=== PATIENT | male | born 1940 | race Caucasian/White ===

== ENCOUNTER 2018-09-19 10:54 | Inpatient (IN) ==
[2018-09-19] MEDS ORDERED: DUONEB (A & A) INH ONE (11:00)
[2018-09-19] MEDS ORDERED: PULMICORT INH ONE (11:00)
[2018-09-19] MEDS ORDERED: ALBUTEROL 0.5% INH CONC FOR HYPERKALEMIA ONE (11:02)
[2018-09-19] MEDS ORDERED: DECADRON IV ONE (11:02)
[2018-09-19] MEDS ORDERED: DUONEB (A & A) ONE (11:03)
[2018-09-19 11:27] LABS: ALLEN TEST YES; BE -2.1 mmoll (-3.0-3.0); BLOOD TYPE ARTERIAL; HCO3-(ACT) 23.3 mmoll (20.0-26.0); METHB 0.9 % (0.0-1.5); O2(CT) 13.8 mL/dL (15.0-23.0); O2HB 95.9 % (95.0-99.0); PCO2(98.6) 36 mmHg (35-45); PO2(98.6) 99 mmHg (60-100); SAMPLE BLOOD; SAO2 99.2 % (95.0-100.0); THB 10.1 g/dL (11.5-17.4)
[2018-09-19 11:28] LABS: MODALITY CANNULA
[2018-09-19 11:28] LABS: EOS% 1.2 % (0.0-10.0); HEMATOCRIT 31.3 % (42.0-52.0); HEMOGLOBIN 9.7 g/dL (14.0-18.0); IMM GRAN# 0.03 X1000 (0.0-0.04); IMM GRAN% 0.4 % (0.0-0.5); LYMPH# 1.47 X1000 (1.2-3.4); MCH 30.4 PG (27-31); MCV 98.1 FL (81-99); MONO# 1.37 X1000 (0.11-0.59); MONO% 16.8 % (1.7-9.3); MPV 10.2 FL (7.4-10.4); NEUT# 5.18 X1000 (1.4-6.5); NEUT% 63.6 % (42.2-75.2); PLT 189 X1000 (130-400); RBC 3.19 XMIL (4.7-6.1); RDW 15.1 % (11.5-14.5); WBC 8.15 X1000 (4.8-10.8)
--- NOTE | 2018-09-19 11:34 | Diag Imaging Result Doc PS360 ---
EXAM: CHEST-PORTABLE 09/19/2018 HISTORY: cough TECHNIQUE: AP portable at 1125 COMMENT: There is ill-defined opacity over both lung bases. This is worse than on 09/05/2018. IMPRESSION: Bibasilar atelectasis and/or pneumonia. Electronically signed by Darwin Guadalupe 09/19/2018 11:32 AM
[2018-09-19 12:09] LABS: ALB/GLOB RATIO 1.2; ALBUMIN 3.6 g/dL (3.5-5.0); CREATININE 1.5 mg/dL (0.7-1.2); POTASSIUM 4.6 mmol/L (3.5-5.1); TOTAL BILIRUBIN 0.26 mg/dL (0.20-1.00); TOTAL PROTEIN 6.6 g/dL (6.3-8.3)
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
--- NOTE | 2018-09-19 15:07 | EKG Report ---
Test Performed on : 09/19/2018 10:58:10 AM Test Reason : ED. No order in [place] Blood Pressure : / mmHG Vent. Rate : 086 BPM Atrial Rate : 091 BPM P-R Int : 216 ms QRS Dur : 118 ms QT Int : 374 ms P-R-T Axes : 109 -23 078 degrees QTc Int : 447 ms Undetermined rhythm Left ventricular hypertrophy with QRS widening and repolarization abnormality Abnormal ECG When compared with ECG of 19-SEP-2018 10:57, (Unconfirmed) Current undetermined rhythm precludes rhythm comparison, needs review ST no longer depressed in Anterior leads Inverted T waves have replaced nonspecific T wave abnormality in Inferior leads T wave inversion no longer evident in Anterior leads QT has shortened Unconfirmed Result
[2018-09-19] MEDS ORDERED: DUONEB (A & A) INH PRN (15:09)
[2018-09-19] MEDS ORDERED: ZOFRAN IV PRN (15:09)
[2018-09-19] MEDS: NS 1,000 ML IV SCH (15:57)
[2018-09-19] MEDS: ROCEPHIN 1 GM in NS 50 ML IV SCH (15:57)
[2018-09-19] MEDS: DUONEB (A & A) INH SCH ×3 (16:00→23:54)
[2018-09-19] MEDS: HUMALOG SUBQ SCH (18:20)
[2018-09-19] MEDS: TESSALON PO SCH (18:49)
[2018-09-19] MEDS: SOLU-MEDROL IV SCH (18:49)
[2018-09-19] MEDS: PULMICORT INH SCH (19:23)
[2018-09-19] MEDS: ZITHROMAX 500 MG/NS 500 MG/250 ML IVPB IV SCH (20:01)
[2018-09-19] MEDS: RANEXA PO SCH (20:22)
[2018-09-19] MEDS: COREG PO SCH (20:22)
[2018-09-19] MEDS: CARDIZEM CD PO SCH (20:23)
[2018-09-19] MEDS: LIPITOR PO SCH (20:23)
[2018-09-19] MEDS: ELAVIL PO SCH (20:23)
[2018-09-19] MEDS: ZANTAC PO SCH (20:23)
[2018-09-19] MEDS ORDERED: CARDIZEM IV ONE ×2 (20:35→20:53)
[2018-09-19] MEDS ORDERED: LANOXIN IV ONE (20:36)
[2018-09-20] MEDS: HUMALOG SUBQ SCH ×5 (00:24→20:38)
[2018-09-20] MEDS: SOLU-MEDROL IV SCH ×3 (01:55→18:14)
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
[2018-09-20] MEDS: DUONEB (A & A) INH SCH ×6 (03:47→23:00)
[2018-09-20 06:15] LABS: HEMATOCRIT 32.9 % (42.0-52.0); HEMOGLOBIN 10.2 g/dL (14.0-18.0); IMM GRAN# 0.04 X1000 (0.0-0.04); IMM GRAN% 0.8 % (0.0-0.5); LYMPH# 0.71 X1000 (1.2-3.4); LYMPH% 14.8 % (20.5-51.1); MCH 30.2 PG (27-31); MCV 97.3 FL (81-99); MONO# 0.04 X1000 (0.11-0.59); MONO% 0.8 % (1.7-9.3); MPV 10.3 FL (7.4-10.4); NEUT% 83.6 % (42.2-75.2); PLT 194 X1000 (130-400); RBC 3.38 XMIL (4.7-6.1); RDW 14.9 % (11.5-14.5); WBC 4.79 X1000 (4.8-10.8)
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
[2018-09-20 06:35] LABS: AGAP 13; BUN 23 mg/dL (8-22); CALCIUM 8.9 mg/dL (8.8-10.2); CHLORIDE 108 mmol/L (98-107); COSMO 294; CREATININE 1.1 mg/dL (0.7-1.2); ESTIMATED GFR > 60; GLUCOSE 203 mg/dL (70-104); POTASSIUM 5.1 mmol/L (3.5-5.1); SODIUM 143 mmol/L (136-145); TCO2 22 mmol/L (25-35)
[2018-09-20] MEDS: PULMICORT INH SCH (07:30)
--- NOTE | 2018-09-20 07:32 | EKG Report ---
Test Performed on : 09/19/2018 8:30:50 PM Test Reason : afib on tele Blood Pressure : / mmHG Vent. Rate : 141 BPM Atrial Rate : 141 BPM P-R Int : 000 ms QRS Dur : 126 ms QT Int : 340 ms P-R-T Axes : 000 -17 107 degrees QTc Int : 520 ms Wide QRS tachycardia. Nonspecific intraventricular block T wave abnormality, consider lateral ischemia Abnormal ECG When compared with ECG of 19-SEP-2018 10:58, (Unconfirmed) Previous ECG has undetermined rhythm, needs review Unconfirmed Result
[2018-09-20] MEDS: COREG PO SCH ×2 (10:00→20:37)
[2018-09-20] MEDS: RANEXA PO SCH ×2 (10:02→20:38)
[2018-09-20] MEDS: ZANTAC PO SCH ×2 (10:02→20:38)
[2018-09-20] MEDS: ALDACTONE PO SCH (10:03)
[2018-09-20] MEDS: VICON-C PO SCH (10:03)
[2018-09-20] MEDS: TESSALON PO SCH ×3 (10:03→18:14)
[2018-09-20] MEDS: IMDUR PO SCH (10:03)
[2018-09-20] MEDS: ASPIRIN PO SCH (10:03)
[2018-09-20 11:31] LABS: HEMOGLOBIN A1C 6.2 % (4.8-6.0)
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
[2018-09-20] MEDS: LASIX IV SCH (14:44)
[2018-09-20] MEDS: CARAFATE PO SCH ×3 (14:48→20:38)
[2018-09-20] MEDS: NS 1,000 ML IV SCH (16:42)
[2018-09-20] MEDS: ROCEPHIN 1 GM in NS 50 ML IV SCH (16:43)
[2018-09-20] MEDS: ZITHROMAX 500 MG/NS 500 MG/250 ML IVPB IV SCH (18:13)
[2018-09-20] MEDS: ELAVIL PO SCH (20:38)
[2018-09-20] MEDS: CARDIZEM CD PO SCH (20:38)
[2018-09-20] MEDS: LIPITOR PO SCH (20:38)
--- NOTE | 2018-09-20 21:22 | ECHO REPORT ---
ORDER DATE: 09/19/2018 MEASUREMENTS: Left ventricular internal diameter diastole 6.3, septal thickness 1.1, left atrium 4.5, aortic root 3.6. Summary 1. Technically difficult study due to limited acoustic window quality. 2. Aortic valve is trileaflet and demonstrates mild sclerotic changes with adequate opening on 2- dimensional images. Peak gradient across aortic valve is less than 10 mmHg. Mild mitral annular calcification is demonstrated along with mild thickening of mitral valve leaflets. There is mild mitral regurgitation. Tricuspid and pulmonic valves are without evidence of structural abnormality with trace tricuspid regurgitation. Aortic root is normal in size. 3. Mild left ventricular enlargement with upper normal wall thickness demonstrated. Estimated left ejection fraction approximately 20% in the setting of global hypokinesis. Left atrium is mildly enlarged. Right atrium, right ventricle normal in size with grossly preserved right ventricular systolic function. 4. No pericardial effusion. 5. Appearance of inferior vena cava suggests elevated central venous pressure. cc: Jean-Claude Mandel MD
[2018-09-21] MEDS: SOLU-MEDROL IV SCH ×4 (02:24→18:25)
[2018-09-21] MEDS: DUONEB (A & A) INH SCH ×6 (03:20→23:17)
[2018-09-21] MEDS: HUMALOG SUBQ SCH ×4 (06:09→21:35)
[2018-09-21 06:30] LABS: HEMATOCRIT 32.2 % (42.0-52.0); HEMOGLOBIN 9.9 g/dL (14.0-18.0); LYMPH# 0.61 X1000 (1.2-3.4); LYMPH% 6.2 % (20.5-51.1); MCH 30.4 PG (27-31); MCHC 30.7 g/dL (33-37); MCV 98.8 FL (81-99); MONO% 3.1 % (1.7-9.3); MPV 10.5 FL (7.4-10.4); NEUT# 8.92 X1000 (1.4-6.5); NEUT% 90.7 % (42.2-75.2); PLT 198 X1000 (130-400); RBC 3.26 XMIL (4.7-6.1); RDW 15.3 % (11.5-14.5); WBC 9.83 X1000 (4.8-10.8)
[2018-09-21 06:56] LABS: CALCIUM 8.8 mg/dL (8.8-10.2); CREATININE 1.4 mg/dL (0.7-1.2); POTASSIUM 4.7 mmol/L (3.5-5.1)
[2018-09-21 08:01] LABS: BANDS 2 % (0-1); LYMPHS 6 % (21-51); SEGS 92 % (42-75)
[2018-09-21] MEDS: ZANTAC PO SCH ×2 (08:49→21:34)
[2018-09-21] MEDS: TESSALON PO SCH ×3 (08:50→18:25)
[2018-09-21] MEDS: FERROUS SULFATE PO SCH (08:50)
[2018-09-21] MEDS: ALDACTONE PO SCH (08:50)
[2018-09-21] MEDS: ZYRTEC PO SCH (08:50)
[2018-09-21] MEDS: CARAFATE PO SCH ×4 (08:50→21:35)
[2018-09-21] MEDS: VICON-C PO SCH (08:50)
[2018-09-21] MEDS: RANEXA PO SCH ×2 (08:50→21:35)
[2018-09-21] MEDS: COREG PO SCH ×2 (08:50→21:35)
[2018-09-21] MEDS: LASIX IV SCH ×2 (08:50→21:35)
[2018-09-21] MEDS: ASPIRIN PO SCH (08:50)
[2018-09-21] MEDS: IMDUR PO SCH (08:50)
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
[2018-09-21] MEDS: ROCEPHIN 1 GM in NS 50 ML IV SCH (16:36)
[2018-09-21] MEDS: ZITHROMAX 500 MG/NS 500 MG/250 ML IVPB IV SCH (18:25)
[2018-09-21] MEDS: LIPITOR PO SCH (21:34)
[2018-09-21] MEDS: ELAVIL PO SCH (21:35)
[2018-09-21] MEDS: CARDIZEM CD PO SCH (21:35)
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
[2018-09-22] MEDS: SOLU-MEDROL IV SCH ×4 (01:49→18:03)
[2018-09-22] MEDS: DUONEB (A & A) INH SCH ×6 (03:14→22:40)
[2018-09-22 06:15] LABS: HEMATOCRIT 30.3 % (42.0-52.0); HEMOGLOBIN 9.3 g/dL (14.0-18.0); IMM GRAN# 0.05 X1000 (0.0-0.04); IMM GRAN% 0.4 % (0.0-0.5); LYMPH# 0.57 X1000 (1.2-3.4); LYMPH% 4.9 % (20.5-51.1); MCHC 30.7 g/dL (33-37); MCV 97.7 FL (81-99); MONO# 0.58 X1000 (0.11-0.59); MPV 10.4 FL (7.4-10.4); NEUT# 10.33 X1000 (1.4-6.5); NEUT% 89.7 % (42.2-75.2); PLT 195 X1000 (130-400); RDW 15.1 % (11.5-14.5); WBC 11.53 X1000 (4.8-10.8)
[2018-09-22 06:22] LABS: CALCIUM 8.5 mg/dL (8.8-10.2); CREATININE 1.5 mg/dL (0.7-1.2); POTASSIUM 4.4 mmol/L (3.5-5.1)
[2018-09-22] MEDS: HUMALOG SUBQ SCH ×6 (06:44→22:40)
[2018-09-22] MEDS: VICON-C PO SCH (08:22)
[2018-09-22] MEDS: TESSALON PO SCH ×3 (08:22→18:03)
[2018-09-22] MEDS: COREG PO SCH ×2 (08:22→22:38)
[2018-09-22] MEDS: ZANTAC PO SCH ×2 (08:22→22:39)
[2018-09-22] MEDS: ALDACTONE PO SCH (08:22)
[2018-09-22] MEDS: RANEXA PO SCH ×2 (08:23→22:39)
[2018-09-22] MEDS: CARAFATE PO SCH ×4 (08:23→22:38)
[2018-09-22] MEDS: IMDUR PO SCH (08:23)
[2018-09-22] MEDS: LASIX IV SCH (08:23)
[2018-09-22] MEDS: ASPIRIN PO SCH (08:23)
[2018-09-22] MEDS: ZYRTEC PO SCH (08:23)
[2018-09-22] MEDS: FERROUS SULFATE PO SCH (08:23)
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
[2018-09-22] MEDS: ROCEPHIN 1 GM in NS 50 ML IV SCH (14:56)
[2018-09-22] MEDS: ZITHROMAX 500 MG/NS 500 MG/250 ML IVPB IV SCH (17:58)
[2018-09-22] MEDS: LIPITOR PO SCH (22:38)
[2018-09-22] MEDS: ELAVIL PO SCH (22:39)
[2018-09-22] MEDS: CARDIZEM CD PO SCH (22:39)
[2018-09-23] MEDS: SOLU-MEDROL IV SCH ×4 (01:53→17:38)
[2018-09-23] MEDS: DUONEB (A & A) INH SCH ×6 (03:22→22:56)
[2018-09-23 06:19] LABS: HEMATOCRIT 32.5 % (42.0-52.0); HEMOGLOBIN 10.1 g/dL (14.0-18.0); IMM GRAN# 0.09 X1000 (0.0-0.04); IMM GRAN% 0.9 % (0.0-0.5); LYMPH# 0.62 X1000 (1.2-3.4); LYMPH% 6.2 % (20.5-51.1); MCH 30.1 PG (27-31); MCHC 31.1 g/dL (33-37); MONO# 0.37 X1000 (0.11-0.59); MONO% 3.7 % (1.7-9.3); MPV 10.4 FL (7.4-10.4); NEUT# 8.96 X1000 (1.4-6.5); NEUT% 89.2 % (42.2-75.2); PLT 186 X1000 (130-400); RBC 3.35 XMIL (4.7-6.1); RDW 14.8 % (11.5-14.5); WBC 10.04 X1000 (4.8-10.8)
[2018-09-23] MEDS: HUMALOG SUBQ SCH ×3 (06:33→21:36)
[2018-09-23 06:54] LABS: CALCIUM 9.1 mg/dL (8.8-10.2); CREATININE 1.5 mg/dL (0.7-1.2); POTASSIUM 5.2 mmol/L (3.5-5.1)
[2018-09-23 07:28] LABS: LYMPHS 8 % (21-51); MONO 4 % (1-9); NRBC 1 % (0-0); SEGS 88 % (42-75)
[2018-09-23] MEDS: ZYRTEC PO SCH (08:54)
[2018-09-23] MEDS: ALDACTONE PO SCH (08:54)
[2018-09-23] MEDS: RANEXA PO SCH ×2 (08:54→21:36)
[2018-09-23] MEDS: FERROUS SULFATE PO SCH (08:54)
[2018-09-23] MEDS: ASPIRIN PO SCH (08:54)
[2018-09-23] MEDS: CARAFATE PO SCH ×4 (08:54→21:36)
[2018-09-23] MEDS: IMDUR PO SCH (08:54)
[2018-09-23] MEDS: ZANTAC PO SCH ×2 (08:54→21:36)
[2018-09-23] MEDS: COREG PO SCH ×2 (08:54→21:36)
[2018-09-23] MEDS: VICON-C PO SCH (08:54)
[2018-09-23] MEDS: LASIX PO SCH (08:54)
[2018-09-23] MEDS: TESSALON PO SCH ×3 (08:54→21:36)
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
[2018-09-23] MEDS ORDERED: HUMALOG SUBQ SCH (15:15)
[2018-09-23] MEDS: ROCEPHIN 1 GM in NS 50 ML IV SCH (15:42)
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
[2018-09-23] MEDS: ZITHROMAX 500 MG/NS 500 MG/250 ML IVPB IV SCH (17:38)
[2018-09-23] MEDS ORDERED: BASAGLAR SUBQ ONE (18:08)
[2018-09-23] MEDS ORDERED: INSULIN PEN NEEDLES ONE (18:51)
[2018-09-23] MEDS: CARDIZEM CD PO SCH (21:36)
[2018-09-23] MEDS: LIPITOR PO SCH (21:36)
[2018-09-23] MEDS: ELAVIL PO SCH (21:36)
[2018-09-24] MEDS: SOLU-MEDROL IV SCH ×4 (01:33→17:15)
[2018-09-24] MEDS: HUMALOG SUBQ SCH ×6 (01:34→21:12)
[2018-09-24] MEDS: DUONEB (A & A) INH SCH ×6 (03:17→23:04)
[2018-09-24 06:21] LABS: HEMATOCRIT 31.4 % (42.0-52.0); LYMPH# 0.65 X1000 (1.2-3.4); LYMPH% 6.2 % (20.5-51.1); MCH 29.9 PG (27-31); MCHC 31.8 g/dL (33-37); MONO# 0.59 X1000 (0.11-0.59); MONO% 5.7 % (1.7-9.3); MPV 10.4 FL (7.4-10.4); NEUT# 9.08 X1000 (1.4-6.5); NEUT% 87.1 % (42.2-75.2); PLT 188 X1000 (130-400); RBC 3.34 XMIL (4.7-6.1); RDW 14.9 % (11.5-14.5); WBC 10.42 X1000 (4.8-10.8)
[2018-09-24 06:48] LABS: CALCIUM 8.8 mg/dL (8.8-10.2); CREATININE 1.6 mg/dL (0.7-1.2); POTASSIUM 4.1 mmol/L (3.5-5.1)
[2018-09-24 07:40] LABS: LYMPHS 8 % (21-51); MONO 6 % (1-9); SEGS 86 % (42-75)
--- NOTE | 2018-09-24 08:20 | Diag Imaging Result Doc PS360 ---
EXAM: CHEST-2 VIEWS HISTORY: sob, pulmonary edema TECHNIQUE: Chest two views COMPARISON: 09/20/2018 FINDINGS: Improved inspiratory effort. Decreased pulmonary edema. There are only small pleural effusions. Heart remains enlarged. There is basilar atelectasis. There are several old rib fractures. IMPRESSION: Overall interval improvement with decreased pulmonary edema. Electronically signed by Cameron Rodriguez 09/24/2018 8:17 AM
[2018-09-24] MEDS: VICON-C PO SCH (09:00)
[2018-09-24] MEDS: RANEXA PO SCH ×2 (09:00→21:10)
[2018-09-24] MEDS: COREG PO SCH ×2 (09:00→21:10)
[2018-09-24] MEDS: TESSALON PO SCH ×3 (09:00→21:10)
[2018-09-24] MEDS: ZYRTEC PO SCH (09:01)
[2018-09-24] MEDS: LASIX PO SCH (09:01)
[2018-09-24] MEDS: ALDACTONE PO SCH (09:01)
[2018-09-24] MEDS: ZANTAC PO SCH ×2 (09:01→21:10)
[2018-09-24] MEDS: ASPIRIN PO SCH (09:01)
[2018-09-24] MEDS: IMDUR PO SCH (09:01)
[2018-09-24] MEDS: FERROUS SULFATE PO SCH (09:01)
[2018-09-24] MEDS: CARAFATE PO SCH ×4 (09:01→21:10)
[2018-09-24] MEDS: LEVEMIR SUBQ SCH ×2 (09:48→21:54)
[2018-09-24] MEDS: ROCEPHIN 1 GM in NS 50 ML IV SCH (14:15)
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
[2018-09-24] MEDS: ZITHROMAX 500 MG/NS 500 MG/250 ML IVPB IV SCH (18:11)
[2018-09-24] MEDS: CARDIZEM CD PO SCH (21:10)
[2018-09-24] MEDS: HEPARIN SUBQ SCH (21:10)
[2018-09-24] MEDS: LIPITOR PO SCH (21:10)
[2018-09-24] MEDS: ELAVIL PO SCH (21:10)
[2018-09-25] MEDS: HUMALOG SUBQ SCH ×6 (01:20→20:15)
[2018-09-25] MEDS: SOLU-MEDROL IV SCH ×3 (01:20→17:19)
[2018-09-25] MEDS: DUONEB (A & A) INH SCH ×6 (03:27→23:10)
--- NOTE | 2018-09-25 03:58 | PROGRESS NOTE ---
DATE: 09/24/2018 SUBJECTIVE: The patient is resting comfortably in bed. He states that his shortness of breath is a little bit better. He does complain of a dry cough. OBJECTIVE: Vital Signs: Temperature 97.6 degrees, blood pressure 133/78, heart rate 75, respirations 20, O2 saturation is 98% on 2 L nasal cannula. General: This is an elderly male, lying in bed, in no acute distress. Heart: S1, S2 normal. Lungs: Diminished breath sounds bilaterally. No crackles. Abdomen: Positive bowel sounds. Soft, nontender, nondistended. Extremities: No edema, no cyanosis. Neurologic: The patient is alert and oriented x3. LABORATORY DATA: White blood cell count 10, hemoglobin 10, hematocrit 31, platelets 188,000. Sodium 142, potassium 4.1, chloride 105, CO2 of 25, BUN 46, creatinine 1.6, glucose 122. ASSESSMENT AND PLAN: 1. Acute hypoxemic respiratory failure, multifactorial. The patient has pulmonary edema and COPD. Continue to treat the underlying conditions. 2. Acute chronic obstructive pulmonary disease (COPD)exacerbation. Continue with IV steroids, supplemental oxygen, and bronchodilator therapy. 3. Severe cardiomyopathy. Aware. 4. Congestive heart failure (CHF). The patient is currently on diuretic therapy. 5. Diabetes mellitus, type 2. Continue on Levemir 25 units twice a day plus sliding scale insulin. 6. Chronic kidney disease. Stable. We will continue to monitor closely while the patient is on diuretic therapy. 7. Deep vein thrombosis (DVT) prophylaxis. We will start the patient on heparin. 8. Continue with physical therapy. cc: Dena Galicia MD [facility]
[2018-09-25 06:09] LABS: HEMATOCRIT 31.3 % (42.0-52.0); HEMOGLOBIN 10.1 g/dL (14.0-18.0); IMM GRAN# 0.16 X1000 (0.0-0.04); IMM GRAN% 1.3 % (0.0-0.5); LYMPH# 0.68 X1000 (1.2-3.4); LYMPH% 5.7 % (20.5-51.1); MCH 30.1 PG (27-31); MCHC 32.3 g/dL (33-37); MCV 93.2 FL (81-99); MONO# 0.88 X1000 (0.11-0.59); MONO% 7.3 % (1.7-9.3); MPV 10.5 FL (7.4-10.4); NEUT# 10.31 X1000 (1.4-6.5); NEUT% 85.7 % (42.2-75.2); PLT 200 X1000 (130-400); RBC 3.36 XMIL (4.7-6.1); RDW 14.7 % (11.5-14.5); WBC 12.03 X1000 (4.8-10.8)
[2018-09-25 06:24] LABS: CALCIUM 8.8 mg/dL (8.8-10.2); CREATININE 1.5 mg/dL (0.7-1.2); POTASSIUM 3.8 mmol/L (3.5-5.1)
[2018-09-25 07:12] LABS: BANDS 2 % (0-1); LYMPHS 8 % (21-51); NRBC 1 % (0-0); SEGS 90 % (42-75)
[2018-09-25] MEDS: LASIX PO SCH (09:32)
[2018-09-25] MEDS: FERROUS SULFATE PO SCH (09:32)
[2018-09-25] MEDS: ALDACTONE PO SCH (09:32)
[2018-09-25] MEDS: CARAFATE PO SCH ×4 (09:33→20:15)
[2018-09-25] MEDS: IMDUR PO SCH (09:33)
[2018-09-25] MEDS: VICON-C PO SCH (09:33)
[2018-09-25] MEDS: RANEXA PO SCH ×2 (09:33→20:15)
[2018-09-25] MEDS: ZANTAC PO SCH ×2 (09:33→20:15)
[2018-09-25] MEDS: COREG PO SCH ×2 (09:33→20:15)
[2018-09-25] MEDS: ASPIRIN PO SCH (09:33)
[2018-09-25] MEDS: ZYRTEC PO SCH (09:34)
[2018-09-25] MEDS: TESSALON PO SCH ×3 (09:34→20:15)
[2018-09-25] MEDS: HEPARIN SUBQ SCH ×2 (09:34→20:14)
[2018-09-25] MEDS: LEVEMIR SUBQ SCH ×2 (09:35→09:36)
[2018-09-25] MEDS: ROCEPHIN 1 GM in NS 50 ML IV SCH (14:11)
--- NOTE | 2018-09-25 14:31 | PROGRESS NOTE ---
DATE: 09/25/2018 SUBJECTIVE: The patient is resting comfortably in bed. No acute events noted overnight. He still has a productive cough. OBJECTIVE: Vital Signs: Temperature 97.3 degrees, blood pressure 134/78, heart rate 77, respirations 22, O2 saturation 99% on 2 L nasal cannula. General: This is an elderly male lying in bed, in no acute distress. Heart: S1, S2 normal. Regular rate and rhythm. Lungs: Coarse breath sounds with mild wheezes bilaterally. Abdomen: Positive bowel sounds. Soft, nontender, nondistended. Extremities: No edema. No cyanosis. Neurologic: The patient is alert and oriented. LABORATORY DATA: White blood cell count 12, hemoglobin 10, hematocrit 31, platelets 200,000. Sodium 145, potassium 3.8, chloride 109, BUN 48, creatinine 1.5, glucose 59. ASSESSMENT AND PLAN: 1. Acute hypoxemic respiratory failure. Multifactorial. 2. Acute chronic obstructive pulmonary disease exacerbation. Continue on IV steroids, supplemental oxygen, antibiotics and bronchodilator therapy. 3. Congestive heart failure. Continue on the current diuretic regimen. 4. Severe cardiomyopathy. Aware. 5. Chronic kidney disease. Stable. 6. Deep vein thrombosis prophylaxis. Continue on heparin. 7. Diabetes mellitus type 2. Continue on Levemir plus sliding scale insulin. 8. Continue with physical therapy. cc: Dena Galicia MD
[2018-09-25] MEDS: ZITHROMAX 500 MG/NS 500 MG/250 ML IVPB IV SCH (17:20)
[2018-09-25] MEDS: ELAVIL PO SCH (20:15)
[2018-09-25] MEDS: LIPITOR PO SCH (20:15)
[2018-09-25] MEDS: CARDIZEM CD PO SCH (20:15)
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
[2018-09-26] MEDS: HUMALOG SUBQ SCH ×6 (00:27→20:47)
[2018-09-26] MEDS: SOLU-MEDROL IV SCH ×3 (00:27→16:28)
[2018-09-26] MEDS: DUONEB (A & A) INH SCH ×6 (02:52→23:10)
[2018-09-26 05:04] LABS: ALLEN TEST YES; BE 1.6 mmoll (-3.0-3.0); BLOOD TYPE ARTERIAL; HCO3-(ACT) 26.1 mmoll (20.0-26.0); METHB 1.1 % (0.0-1.5); O2(CT) 19.1 mL/dL (15.0-23.0); O2HB 96.2 % (95.0-99.0); PCO2(98.6) 39 mmHg (35-45); PO2(98.6) 121 mmHg (60-100); SAMPLE BLOOD; SAO2 99.6 % (95.0-100.0); pH(98.6) 7.43 (7.35-7.45)
[2018-09-26 05:05] LABS: MODALITY CANNULA
[2018-09-26 06:37] LABS: BASO# 0.01 X1000 (0.0-0.2); BASO% 0.1 % (0.0-0.8); HEMATOCRIT 31.5 % (42.0-52.0); HEMOGLOBIN 10.2 g/dL (14.0-18.0); IMM GRAN# 0.25 X1000 (0.0-0.04); LYMPH# 0.57 X1000 (1.2-3.4); LYMPH% 4.5 % (20.5-51.1); MCHC 32.4 g/dL (33-37); MCV 92.6 FL (81-99); MONO# 0.78 X1000 (0.11-0.59); MONO% 6.2 % (1.7-9.3); MPV 10.7 FL (7.4-10.4); NEUT# 11.07 X1000 (1.4-6.5); NEUT% 87.2 % (42.2-75.2); PLT 189 X1000 (130-400); RDW 14.7 % (11.5-14.5); WBC 12.68 X1000 (4.8-10.8)
[2018-09-26 07:02] LABS: CALCIUM 8.7 mg/dL (8.8-10.2); CREATININE 1.6 mg/dL (0.7-1.2); LYMPHS 4 % (21-51); MONO 4 % (1-9); POTASSIUM 3.7 mmol/L (3.5-5.1); SEGS 92 % (42-75)
--- NOTE | 2018-09-26 07:22 | Diag Imaging Result Doc PS360 ---
EXAM: CHEST-PORTABLE 09/26/2018 HISTORY: pulmonary edema/copd TECHNIQUE: AP portable at 0555 COMMENT: There is cardiomegaly. There is increased opacity and volume loss over the right lower lobe compared to 09/24/2018. There are small bilateral pleural effusions. The volume of pleural fluid may be slightly lower on the left than on the previous study. IMPRESSION: Worsened atelectasis versus pneumonia right lower lobe. Electronically signed by Darwin Guadalupe 09/26/2018 7:20 AM
[2018-09-26] MEDS: TESSALON PO SCH ×3 (09:10→16:28)
[2018-09-26] MEDS: FERROUS SULFATE PO SCH (09:10)
[2018-09-26] MEDS: LASIX PO SCH (09:10)
[2018-09-26] MEDS: ZANTAC PO SCH ×2 (09:10→20:48)
[2018-09-26] MEDS: ZYRTEC PO SCH (09:10)
[2018-09-26] MEDS: ALDACTONE PO SCH (09:10)
[2018-09-26] MEDS: ASPIRIN PO SCH (09:10)
[2018-09-26] MEDS: RANEXA PO SCH ×2 (09:11→20:48)
[2018-09-26] MEDS: HEPARIN SUBQ SCH ×2 (09:12→20:47)
[2018-09-26] MEDS: IMDUR PO SCH (09:12)
[2018-09-26] MEDS: CARAFATE PO SCH ×4 (09:12→20:47)
[2018-09-26] MEDS: VICON-C PO SCH (09:13)
[2018-09-26] MEDS: LEVEMIR SUBQ SCH (09:29)
[2018-09-26] MEDS: COREG PO SCH ×2 (09:29→20:48)
[2018-09-26] MEDS ORDERED: MIRALAX PO PRN (14:54)
--- NOTE | 2018-09-26 15:02 | PROGRESS NOTE ---
DATE: 09/26/2018 SUBJECTIVE: The patient is resting comfortably in bed. He is currently eating breakfast. He states that his breathing is about the same. OBJECTIVE: Vital Signs: Temperature 97.5 degrees, blood pressure 151/70, heart rate 70, respirations 18, O2 saturation is 96% on 2 L nasal cannula. General: This is an elderly male lying in bed, in no acute distress. Heart: S1, S2 normal. Regular rate and rhythm. Lungs: Equal air entry bilaterally. No wheezing. No rales. Abdomen: Positive bowel sounds. Soft, nontender, nondistended. Extremities: No edema. No cyanosis. Neurologic: The patient is alert and oriented x3. Labs: White blood cell count 12, hemoglobin 10, hematocrit 31, platelets 181,000. Sodium 146, potassium 3.7, chloride 109, CO2 25, BUN 52, creatinine 1.6, glucose 130. Chest x-ray shows atelectasis versus pneumonia in the right lower lobe. ASSESSMENT AND PLAN: 1. Acute hypoxemic respiratory failure. Continue with the current treatment regimen. 2. Acute chronic obstructive pulmonary disease exacerbation. Improving. Continue on intravenous steroids, supplemental oxygen, and antibiotics. 3. Congestive heart failure. Continue on the current diuretic regimen. 4. Possible pneumonia. We will change the patient's antibiotics and we will also check a procalcitonin level. 5. Severe cardiomyopathy. Aware. 6. Chronic kidney disease stage 3. Stable. 7. Diabetes mellitus type 2. Continue on Levemir and sliding scale insulin. 8. Deep vein thrombosis prophylaxis. Continue on heparin. 9. Continue with physical therapy. cc: Dena Galicia MD [facility]
[2018-09-26] MEDS: MAXIPIME 1 GM in NS 50 ML IV SCH (15:37)
[2018-09-26] MEDS: ZYVOX 600 MG/D5W 600 MG/300 ML IVPB IV SCH (16:27)
[2018-09-26] MEDS: LIPITOR PO SCH (20:47)
[2018-09-26] MEDS: CARDIZEM CD PO SCH (20:47)
[2018-09-27] MEDS: SOLU-MEDROL IV SCH ×2 (01:37→10:57)
[2018-09-27] MEDS: MAXIPIME 1 GM in NS 50 ML IV SCH ×2 (01:37→14:34)
[2018-09-27] MEDS: HUMALOG SUBQ SCH ×6 (01:38→21:03)
[2018-09-27] MEDS: DUONEB (A & A) INH SCH ×6 (03:40→23:30)
[2018-09-27] MEDS: ZYVOX 600 MG/D5W 600 MG/300 ML IVPB IV SCH ×2 (04:32→16:58)
[2018-09-27 06:44] LABS: BASO# 0.02 X1000 (0.0-0.2); BASO% 0.1 % (0.0-0.8); HEMATOCRIT 31.8 % (42.0-52.0); HEMOGLOBIN 10.2 g/dL (14.0-18.0); IMM GRAN# 0.33 X1000 (0.0-0.04); IMM GRAN% 2.2 % (0.0-0.5); LYMPH# 0.59 X1000 (1.2-3.4); LYMPH% 3.9 % (20.5-51.1); MCH 29.8 PG (27-31); MCHC 32.1 g/dL (33-37); MONO# 0.84 X1000 (0.11-0.59); MONO% 5.5 % (1.7-9.3); MPV 10.9 FL (7.4-10.4); NEUT# 13.52 X1000 (1.4-6.5); NEUT% 88.3 % (42.2-75.2); PLT 175 X1000 (130-400); RBC 3.42 XMIL (4.7-6.1); RDW 14.6 % (11.5-14.5)
[2018-09-27 07:11] LABS: LYMPHS 4 % (21-51); MONO 6 % (1-9); SEGS 90 % (42-75)
[2018-09-27 07:24] LABS: CALCIUM 8.4 mg/dL (8.8-10.2); CREATININE 1.7 mg/dL (0.7-1.2); POTASSIUM 3.5 mmol/L (3.5-5.1)
[2018-09-27] MEDS: TESSALON PO SCH ×3 (10:57→21:18)
[2018-09-27] MEDS: HEPARIN SUBQ SCH ×2 (10:57→21:04)
[2018-09-27] MEDS: VICON-C PO SCH (10:57)
[2018-09-27] MEDS: CARAFATE PO SCH ×4 (10:57→21:17)
[2018-09-27] MEDS: ZYRTEC PO SCH (10:58)
[2018-09-27] MEDS: FERROUS SULFATE PO SCH (10:58)
[2018-09-27] MEDS: RANEXA PO SCH ×2 (10:58→21:04)
[2018-09-27] MEDS: IMDUR PO SCH (10:58)
[2018-09-27] MEDS: LASIX PO SCH (10:58)
[2018-09-27] MEDS: ZANTAC PO SCH ×2 (10:58→21:03)
[2018-09-27] MEDS: ASPIRIN PO SCH (10:58)
[2018-09-27] MEDS: ALDACTONE PO SCH (10:58)
[2018-09-27] MEDS: COREG PO SCH ×2 (10:58→21:04)
[2018-09-27] MEDS: LEVEMIR SUBQ SCH (11:01)
[2018-09-27] MEDS ORDERED: MORPHINE IV PRN (11:56)
[2018-09-27] MEDS ORDERED: MORPHINE ONE (12:05)
[2018-09-27] MEDS: TYLENOL PO PRN ×2 (12:08→22:44)
--- NOTE | 2018-09-27 12:11 | EKG Report ---
Test Performed on : 09/27/2018 12:03:08 PM Test Reason : Sudden onset chest pain Blood Pressure : / mmHG Vent. Rate : 077 BPM Atrial Rate : 077 BPM P-R Int : 186 ms QRS Dur : 128 ms QT Int : 438 ms P-R-T Axes : 034 -17 129 degrees QTc Int : 495 ms Sinus rhythm. with marked sinus arrhythmia. Left bundle branch block Abnormal ECG When compared with ECG of 19-SEP-2018 20:30, Sinus rhythm. has replaced Atrial fibrillation. Vent. rate has decreased BY 64 BPM Confirmed by Magalis CIFUENTES, Elia ([id number]) on 09/27/2018 1:07:27 PM
--- NOTE | 2018-09-27 13:26 | PROGRESS NOTE ---
DATE: 09/27/2018 SUBJECTIVE: The patient is sitting up eating breakfast. He states that he feels a lot better today. No acute events noted overnight. OBJECTIVE: Vital Signs: Temperature 97.6 degrees, blood pressure 125/61, heart rate 65, respirations 18, O2 saturation 96% on 2 L nasal cannula. General: This is an elderly male lying in bed in no acute distress. Heart: S1, S2 normal. Regular rate and rhythm. Lungs: Equal air entry bilaterally. No wheezing. No rales. No rhonchi. Abdomen: Positive bowel sounds. Soft, nontender, nondistended. Extremities: No edema, no cyanosis. Neurologic: The patient is alert and oriented x3. LABS: White blood cell count 15, hemoglobin 10, hematocrit 31 platelets 175,000. Sodium 143, potassium 3.5, chloride 107, CO2 26, BUN 50, creatinine 1.7, glucose 139. ASSESSMENT AND PLAN: 1. Acute chronic obstructive pulmonary disease exacerbation, improved. Continue with bronchodilator therapy and supplemental oxygen. 2. Congestive heart failure. Continue on the current cardiac medications. The patient will follow up with Dr. Mandel upon discharge. 3. Possible pneumonia. A CT of the chest is currently ordered for today. The procalcitonin level is also pending. The patient remains on cefepime and Zyvox at this time. 4. Constipation. Continue on MiraLAX. 5. Chronic kidney disease stage 3. Stable. 6. Severe cardiomyopathy. Aware. 7. Diabetes mellitus type 2. Continue on Levemir and sliding scale insulin. 8. Deep vein thrombosis prophylaxis. Continue on heparin. 9. Continue with physical therapy. 10. Disposition. Will ask the respiratory therapist to assess the patient for need for home oxygen. cc: Dena Galicia MD MTDD
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
--- NOTE | 2018-09-27 15:36 | Diag Imaging Result Doc PS360 ---
EXAM: CT THORAX W/O CONTRAST 09/27/2018 HISTORY: copd/pneumonia TECHNIQUE: This exam was performed using automated exposure control, adjustment of mA or kV according to patient size, and/or use of iterative reconstruction technique. COMMENT: There are no previous thoracic studies available for comparison. Where possible comparison will be made with the previous abdominal study of 09/27/2013. There is atelectasis and/or pneumonia in both lower lobes. This was not the case at the time the previous abdominal study. There are large bilateral pleural effusions. There is some anasarca. There are multiple visible renal cysts as were present at the time the previous abdominal study. There is extensive coronary calcification. There is no evidence of significant adenopathy. There are degenerative disc changes throughout the thoracic spine. There is no evidence of acute bony disease. IMPRESSION: Bilateral lower lobe atelectasis and/or pneumonia. Bilateral pleural effusions. Anasarca. Electronically signed by Darwin Guadalupe 09/27/2018 3:34 PM
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
[2018-09-27] MEDS: CARDIZEM CD PO SCH (21:03)
[2018-09-27] MEDS: LIPITOR PO SCH (21:04)
[2018-09-28] MEDS: MAXIPIME 1 GM in NS 50 ML IV SCH ×3 (00:47→14:13)
[2018-09-28] MEDS: HUMALOG SUBQ SCH ×6 (00:47→20:11)
[2018-09-28] MEDS: ZYVOX 600 MG/D5W 600 MG/300 ML IVPB IV SCH ×2 (03:12→15:28)
[2018-09-28] MEDS: DUONEB (A & A) INH SCH ×6 (03:20→23:00)
[2018-09-28 07:11] LABS: BASO# 0.04 X1000 (0.0-0.2); BASO% 0.2 % (0.0-0.8); HEMATOCRIT 30.5 % (42.0-52.0); HEMOGLOBIN 9.9 g/dL (14.0-18.0); IMM GRAN# 0.69 X1000 (0.0-0.04); IMM GRAN% 3.6 % (0.0-0.5); LYMPH# 0.86 X1000 (1.2-3.4); LYMPH% 4.5 % (20.5-51.1); MCHC 32.5 g/dL (33-37); MCV 92.4 FL (81-99); MONO# 3.16 X1000 (0.11-0.59); MONO% 16.5 % (1.7-9.3); MPV 10.9 FL (7.4-10.4); NEUT# 14.35 X1000 (1.4-6.5); NEUT% 75.2 % (42.2-75.2); PLT 164 X1000 (130-400); RDW 14.7 % (11.5-14.5)
[2018-09-28 07:50] LABS: CALCIUM 8.3 mg/dL (8.8-10.2); CREATININE 1.6 mg/dL (0.7-1.2); POTASSIUM 3.2 mmol/L (3.5-5.1)
[2018-09-28] MEDS: LEVEMIR SUBQ SCH (08:23)
[2018-09-28] MEDS: HEPARIN SUBQ SCH ×2 (08:24→22:15)
[2018-09-28] MEDS: IMDUR PO SCH (08:25)
[2018-09-28] MEDS: COREG PO SCH ×2 (08:25→22:16)
[2018-09-28] MEDS: RANEXA PO SCH ×2 (08:25→22:16)
[2018-09-28] MEDS: ZANTAC PO SCH ×2 (08:25→22:15)
[2018-09-28] MEDS: VICON-C PO SCH (08:25)
[2018-09-28] MEDS: ASPIRIN PO SCH (08:25)
[2018-09-28] MEDS: TYLENOL PO PRN (08:26)
[2018-09-28] MEDS: TESSALON PO SCH ×3 (08:26→16:50)
[2018-09-28] MEDS: ZYRTEC PO SCH (08:26)
[2018-09-28] MEDS: FERROUS SULFATE PO SCH (08:26)
[2018-09-28] MEDS: ALDACTONE PO SCH (08:26)
[2018-09-28] MEDS: CARAFATE PO SCH ×4 (08:26→22:16)
[2018-09-28] MEDS: PREDNISONE PO SCH (12:37)
--- NOTE | 2018-09-28 14:45 | Diag Imaging Result Doc PS360 ---
EXAM: SHOULDER-LEFT - 09/28/2018 HISTORY: pain TECHNIQUE: Left shoulder two views COMPARISON: None. FINDINGS: There are some degenerative changes. There is deformity of the distal clavicle which may relate to old injury, prior surgery, or prior inflammatory arthritis at the acromioclavicular joint. There are no acute-appearing erosive or destructive changes. There is no fracture or dislocation identified. IMPRESSION: Degenerative changes. Chronic appearing deformity of distal clavicle. No evidence of recent fracture or dislocation. Electronically signed by Agapito Nicole 09/28/2018 2:43 PM
[2018-09-28] MEDS ORDERED: KLOR-CON PO ONE (18:45)
--- NOTE | 2018-09-28 20:23 | PROGRESS NOTE ---
DATE: 09/28/2018 SUBJECTIVE: The patient complains of gout involving his left great toe and pain in his left shoulder. OBJECTIVE: Vital Signs: Temperature 97.5 degrees, blood pressure 142/80, heart rate 62, respirations 18, O2 saturation is 100% on 2 L nasal cannula. General: This is a chronically ill- appearing elderly male, lying in bed in no acute distress. Heart: S1, S2 normal. Regular rate and rhythm. Lungs: Equal air entry bilaterally. No crackles. No rales. Abdomen: Positive bowel sounds. Soft, nontender, nondistended. Extremities: Trace pedal edema. Exquisite tenderness involving the left great toe. Neurologic: The patient is alert and oriented x4. LABORATORY DATA: White blood cell count 19, hemoglobin 9.9, hematocrit 30, platelets 164,000. Sodium 139, potassium 3.2, chloride 102, CO2 is 27, BUN 55, creatinine 1.6. ASSESSMENT AND PLAN: 1. Pneumonia. Continue on antibiotic and bronchodilator therapy. 2. Acute chronic obstructive pulmonary disease exacerbation. Continue with bronchodilator therapy and supplemental oxygen. 3. Congestive heart failure exacerbation. We will hold the patient's Lasix and monitor. 4. Gout. The patient has been started on prednisone. 5. Constipation. Continue on MiraLAX. 6. Chronic kidney disease stage 3. Stable. 7. Severe cardiomyopathy. Aware. 8. Diabetes mellitus type 2. Continue on Levemir and sliding scale insulin. 9. Deep venous thrombosis prophylaxis. Continue on heparin. 10. Continue with physical therapy. 11. Disposition. The patient will likely need home oxygen upon discharge. cc: Dena Galicia MD
[2018-09-28] MEDS: CARDIZEM CD PO SCH (22:10)
[2018-09-28] MEDS: LIPITOR PO SCH (22:16)
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
[2018-09-29] MEDS: HUMALOG SUBQ SCH ×6 (01:30→23:04)
[2018-09-29] MEDS: MAXIPIME 1 GM in NS 50 ML IV SCH ×2 (02:20→14:56)
[2018-09-29] MEDS: DUONEB (A & A) INH SCH ×6 (03:49→23:25)
[2018-09-29] MEDS: ZYVOX 600 MG/D5W 600 MG/300 ML IVPB IV SCH ×2 (04:23→16:21)
[2018-09-29 06:42] LABS: BASO# 0.02 X1000 (0.0-0.2); BASO% 0.1 % (0.0-0.8); EOS# 0.01 X1000 (0.0-0.7); EOS% 0.1 % (0.0-10.0); HEMATOCRIT 31.6 % (42.0-52.0); HEMOGLOBIN 10.2 g/dL (14.0-18.0); IMM GRAN% 4.7 % (0.0-0.5); LYMPH# 1.21 X1000 (1.2-3.4); LYMPH% 8.1 % (20.5-51.1); MCH 30.1 PG (27-31); MCHC 32.3 g/dL (33-37); MCV 93.2 FL (81-99); MONO# 1.85 X1000 (0.11-0.59); MONO% 12.4 % (1.7-9.3); MPV 10.7 FL (7.4-10.4); NEUT# 11.15 X1000 (1.4-6.5); NEUT% 74.6 % (42.2-75.2); PLT 153 X1000 (130-400); RBC 3.39 XMIL (4.7-6.1); WBC 14.94 X1000 (4.8-10.8)
[2018-09-29 07:23] LABS: CALCIUM 8.5 mg/dL (8.8-10.2); CREATININE 1.4 mg/dL (0.7-1.2); POTASSIUM 4.3 mmol/L (3.5-5.1)
--- NOTE | 2018-09-29 09:09 | Diag Imaging Result Doc PS360 ---
EXAM: CHEST-2 VIEWS HISTORY: abnormal exam TECHNIQUE: Chest two views COMPARISON: 09/26/2018 FINDINGS: The lungs are hyperexpanded. The heart is mildly enlarged. The vessels are not distended. There are increased markings in the left lung base. Small pleural effusions. IMPRESSION: Small left lower lobe infiltrates Electronically signed by Cameron Rodriguez 09/29/2018 9:07 AM
[2018-09-29] MEDS: LEVEMIR SUBQ SCH (11:52)
[2018-09-29] MEDS: ALDACTONE PO SCH (11:53)
[2018-09-29] MEDS: VICON-C PO SCH (11:53)
[2018-09-29] MEDS: IMDUR PO SCH (11:53)
[2018-09-29] MEDS: ZANTAC PO SCH ×2 (11:53→23:07)
[2018-09-29] MEDS: ZYRTEC PO SCH (11:53)
[2018-09-29] MEDS: TESSALON PO SCH ×3 (11:53→16:21)
[2018-09-29] MEDS: RANEXA PO SCH ×2 (11:53→23:06)
[2018-09-29] MEDS: CARAFATE PO SCH ×4 (11:53→23:06)
[2018-09-29] MEDS: FERROUS SULFATE PO SCH (11:53)
[2018-09-29] MEDS: PREDNISONE PO SCH (11:53)
[2018-09-29] MEDS: COREG PO SCH ×2 (11:53→23:06)
[2018-09-29] MEDS: ASPIRIN PO SCH (11:54)
[2018-09-29] MEDS: HEPARIN SUBQ SCH ×2 (11:54→23:06)
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
--- NOTE | 2018-09-29 22:05 | PROGRESS NOTE ---
DATE: 09/29/2018 SUBJECTIVE: The patient complains of pain his left foot. OBJECTIVE: Vital Signs: Temperature 97 degrees, blood pressure 153/86, heart rate 85, respirations 24, O2 saturation 96% on 2 L nasal cannula. General: This is a chronically ill- appearing elderly male lying in bed in no acute distress. Heart: S1, S2 normal. Regular rate and rhythm. Lungs: Equal air entry bilaterally. No crackles, no rales. Abdomen: Positive bowel sounds. Soft, nontender, nondistended. Extremities: No edema, no cyanosis. Neuro: The patient is alert and oriented x3. LABS: White blood cell count 14, hemoglobin 10, hematocrit 31, platelets 153,000, sodium 138, potassium 4.3, chloride 103, CO2 28, BUN 42, creatinine 1.4, glucose 141. Chest x-ray shows left lower lobe infiltrate. ASSESSMENT AND PLAN: 1. Pneumonia. Continue with antibiotic and bronchodilator therapy. 2. Congestive heart failure exacerbation. Resume diuretic therapy tomorrow. 3. Left foot gout. Continue with prednisone. 4. Constipation. Continue on MiraLAX. 5. Chronic kidney disease. Stable. 6. Severe cardiomyopathy. Aware. 7. Chronic obstructive pulmonary disease. Continue with bronchodilator therapy and supplemental oxygen. 8. Diabetes mellitus type 2. Continue on Levemir and sliding scale insulin. 9. Deep vein thrombosis prophylaxis. Continue on heparin. 10. Continue with physical therapy. cc: MD JONATHAN Tan
[2018-09-29] MEDS: CARDIZEM CD PO SCH (23:06)
[2018-09-29] MEDS: LIPITOR PO SCH (23:06)
[2018-09-30] MEDS: HUMALOG SUBQ SCH ×6 (01:32→22:03)
[2018-09-30] MEDS: DUONEB (A & A) INH SCH ×6 (03:25→23:30)
[2018-09-30] MEDS: MAXIPIME 1 GM in NS 50 ML IV SCH ×2 (03:31→14:44)
[2018-09-30] MEDS: ZYVOX 600 MG/D5W 600 MG/300 ML IVPB IV SCH ×2 (04:01→15:21)
[2018-09-30 05:42] LABS: BASO# 0.02 X1000 (0.0-0.2); BASO% 0.1 % (0.0-0.8); EOS# 0.03 X1000 (0.0-0.7); EOS% 0.2 % (0.0-10.0); HEMATOCRIT 30.6 % (42.0-52.0); HEMOGLOBIN 10.2 g/dL (14.0-18.0); IMM GRAN# 0.56 X1000 (0.0-0.04); IMM GRAN% 4.2 % (0.0-0.5); LYMPH# 1.35 X1000 (1.2-3.4); LYMPH% 10.1 % (20.5-51.1); MCH 30.8 PG (27-31); MCHC 33.3 g/dL (33-37); MCV 92.4 FL (81-99); MONO# 2.05 X1000 (0.11-0.59); MONO% 15.3 % (1.7-9.3); MPV 10.6 FL (7.4-10.4); NEUT# 9.39 X1000 (1.4-6.5); NEUT% 70.1 % (42.2-75.2); PLT 135 X1000 (130-400); RBC 3.31 XMIL (4.7-6.1); RDW 14.9 % (11.5-14.5)
[2018-09-30] MEDS ORDERED: INSULIN PEN NEEDLES ONE (05:53)
[2018-09-30 06:16] LABS: CALCIUM 8.6 mg/dL (8.8-10.2); CREATININE 1.3 mg/dL (0.7-1.2)
[2018-09-30] MEDS: CARAFATE PO SCH ×4 (08:29→23:00)
[2018-09-30] MEDS: TYLENOL PO PRN ×2 (08:29→23:03)
[2018-09-30] MEDS: LASIX PO SCH (09:00)
[2018-09-30] MEDS: LEVEMIR SUBQ SCH (09:00)
--- NOTE | 2018-09-30 10:25 | EKG Report ---
Test Performed on : 09/30/2018 10:18:02 AM Test Reason : chest pain Blood Pressure : / mmHG Vent. Rate : 069 BPM Atrial Rate : 069 BPM P-R Int : 196 ms QRS Dur : 126 ms QT Int : 442 ms P-R-T Axes : 033 -17 210 degrees QTc Int : 473 ms Normal sinus rhythm. Left ventricular hypertrophy with QRS widening and repolarization abnormality Abnormal ECG When compared with ECG of 27-SEP-2018 12:03, Left bundle branch block is no longer present Confirmed by Magalis CIFUENTES, Elia ([id number]) on 09/30/2018 5:29:07 PM
[2018-09-30] MEDS: VICON-C PO SCH (10:27)
[2018-09-30] MEDS: ASPIRIN PO SCH (10:27)
[2018-09-30] MEDS: ZYRTEC PO SCH (10:27)
[2018-09-30] MEDS: ALDACTONE PO SCH (10:27)
[2018-09-30] MEDS: ZANTAC PO SCH ×2 (10:27→22:03)
[2018-09-30] MEDS: COREG PO SCH ×2 (10:27→22:03)
[2018-09-30] MEDS: IMDUR PO SCH (10:27)
[2018-09-30] MEDS: RANEXA PO SCH ×2 (10:27→22:03)
[2018-09-30] MEDS: TESSALON PO SCH ×3 (10:30→17:28)
[2018-09-30] MEDS: FERROUS SULFATE PO SCH (10:30)
[2018-09-30] MEDS: HEPARIN SUBQ SCH ×2 (10:30→22:04)
[2018-09-30] MEDS: PREDNISONE PO SCH (10:30)
[2018-09-30] MEDS ORDERED: G.I. COCKTAIL PO ONE (10:37)
--- NOTE | 2018-09-30 12:11 | Diag Imaging Result Doc PS360 ---
EXAM: MRI UPPER EXT JT W/O CON-LEFT 09/30/2018 HISTORY: left shoulder pain/immobility TECHNIQUE: Axial 2-D merge, coronal T1, STIR, 2-D merge, T2 fat sat sagittal. COMMENT: There has been apparent postsurgical change in the area of the acromioclavicular joint. There is apparent complete rotator cuff tear with retraction of the supraspinatus and infraspinatus and atrophy of the muscles. The humeral head rides high in the glenoid. There is no evidence of bone marrow edema. There are some subchondral cysts present around the greater tuberosity. There are apparent tears in the anterior superior and inferior glenoid labrum. There are no previous studies available for comparison. IMPRESSION: Chronic rotator cuff tear, postsurgical change, degeneration and tears of the glenoid labrum. Electronically signed by Darwin Guadalupe 09/30/2018 12:08 PM
--- NOTE | 2018-09-30 15:34 | PROGRESS NOTE ---
DATE: 09/30/2018 SUBJECTIVE: Mr. Julian Mccarty is a 78-year-old male. He is resting comfortably in bed. He is alert, states he just feels a little crummy. He states he has been able to get up and go to the bathroom, has worked with physical therapy a little bit, eating okay. He did have a hypoglycemic episode this morning that resolved with food. Then he also had a sudden onset of chest pain in his mid lower sternum that can be reproducible with palpation. He has been having coughing. Otherwise, he has no other complaints. He states he is not able to cough anything up. OBJECTIVE: Vital signs: Temperature is 98.6, heart rate 76, respiratory rate 18, blood pressure 134/80, O2 saturation is 96% on 2 L nasal cannula. General: Mr. Julian Mccarty is a 78-year-old male. He is in no acute distress, able to answer questions appropriately. Cardiovascular: S1, S2. Regular rate and rhythm. No rubs, gallops or murmurs. Trace lower extremity edema. Plus 2 dorsalis and radial pulses. Negative JVD or carotid bruits. Chest wall tender with palpation in lower sternal area. Pulmonary: Clear to auscultation with bilateral breath sounds. No accessory muscle use or work of breathing noted. Decreased at the bases. He is tolerating 2 L nasal cannula. GI: Soft, nontender and nondistended. Positive bowel sounds x4. Extremities: Decreased range of motion in the left upper extremity. DIAGNOSTIC DATA: White blood cells are 13,000, hemoglobin 10, hematocrit 30, platelet count 135. Sodium is 135, potassium 4.0, BUN is 37, creatinine 1.3, glucose was 85. He actually had a drop down to 52 this morning which improved after food intake. CK is 34. Troponin less than 0.01. IMAGING: Left shoulder pain and immobility. He had MRI performed which showed chronic rotator cuff tear, postsurgical change, degeneration and tears of the glenoid labrum. EKG is normal sinus rhythm, rate 69, QTC is 473. There were no ST changes. ASSESSMENT AND PLAN: 1. Bibasilar pneumonia. Continue with cefepime 1 g IV q.12 hours and Zyvox 600 mg IV q.12 hours. 2. Acute on chronic systolic congestive heart failure. Continue with p.o. Lasix, was followed by Dr. Mandel with Cardiology. 3. Left foot gout. Continue with prednisone. 4. Leukocytosis. Could be due to pneumonia but also could be related to prednisone use. He has been afebrile. 5. Constipation. Continue with MiraLAX. Last bowel movement it looks like on 09/27/2018. We will have to monitor that. Give a suppository if he does not have a bowel movement soon. 6. Chronic kidney disease stage 3, stable. 7. Severe cardiomyopathy, on Lasix, aspirin, statin, Coreg, Imdur, Ranexa, Aldactone. 8. Chronic obstructive pulmonary disease. No exacerbation. Continue bronchodilator therapy and 2 L of oxygen. 9. Diabetes mellitus type 2 with an episode of hypoglycemia down to 52 which resolved after oral intake of food. It was a one time incident. We will continue with Levemir and sliding scale insulin. 10.Gastroesophageal reflux disease. Continue with Carafate. Continue with Zantac. 11.DVT prophylaxis. Renal dosed heparin 5000 units subcutaneously twice daily. Dictated by ROYER Coleman for Dena Galicia MD cc: ROYER Coleman MD I performed a face to face encounter on the patient. I reviewed all labs and imaging on the patient. The patient has a chronic rotator cuff tear involving the left shoulder. Will consult Orthopedic surgery for further recommendations. MTDD
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
[2018-09-30] MEDS: CARDIZEM CD PO SCH (22:04)
[2018-09-30] MEDS: LIPITOR PO SCH (22:04)
[2018-10-01] MEDS: MAXIPIME 1 GM in NS 50 ML IV SCH ×2 (01:45→15:25)
[2018-10-01] MEDS: HUMALOG SUBQ SCH ×6 (01:49→20:56)
[2018-10-01] MEDS: ZYVOX 600 MG/D5W 600 MG/300 ML IVPB IV SCH ×2 (04:47→17:13)
[2018-10-01] MEDS: DUONEB (A & A) INH SCH ×5 (05:55→19:35)
[2018-10-01 05:57] LABS: BASO# 0.02 X1000 (0.0-0.2); BASO% 0.1 % (0.0-0.8); EOS# 0.05 X1000 (0.0-0.7); EOS% 0.4 % (0.0-10.0); HEMATOCRIT 31.2 % (42.0-52.0); HEMOGLOBIN 10.3 g/dL (14.0-18.0); IMM GRAN# 0.45 X1000 (0.0-0.04); IMM GRAN% 3.3 % (0.0-0.5); LYMPH# 1.44 X1000 (1.2-3.4); LYMPH% 10.5 % (20.5-51.1); MCH 30.3 PG (27-31); MCV 91.8 FL (81-99); MONO# 2.38 X1000 (0.11-0.59); MONO% 17.4 % (1.7-9.3); MPV 10.5 FL (7.4-10.4); NEUT# 9.32 X1000 (1.4-6.5); NEUT% 68.3 % (42.2-75.2); PLT 132 X1000 (130-400); RDW 14.9 % (11.5-14.5); WBC 13.66 X1000 (4.8-10.8)
[2018-10-01 06:20] LABS: CALCIUM 8.6 mg/dL (8.8-10.2); CREATININE 1.2 mg/dL (0.7-1.2); POTASSIUM 4.3 mmol/L (3.5-5.1)
[2018-10-01] MEDS: CARAFATE PO SCH ×4 (09:35→20:58)
[2018-10-01] MEDS: FERROUS SULFATE PO SCH (09:35)
[2018-10-01] MEDS: RANEXA PO SCH ×2 (09:35→20:58)
[2018-10-01] MEDS: VICON-C PO SCH (09:35)
[2018-10-01] MEDS: ZANTAC PO SCH ×2 (09:35→20:58)
[2018-10-01] MEDS: LASIX PO SCH (09:35)
[2018-10-01] MEDS: COREG PO SCH ×2 (09:35→20:57)
[2018-10-01] MEDS: ALDACTONE PO SCH (09:35)
[2018-10-01] MEDS: TESSALON PO SCH ×3 (09:36→17:13)
[2018-10-01] MEDS: ASPIRIN PO SCH (09:36)
[2018-10-01] MEDS: IMDUR PO SCH (09:36)
[2018-10-01] MEDS: ZYRTEC PO SCH (09:36)
[2018-10-01] MEDS: HEPARIN SUBQ SCH ×2 (09:36→20:58)
[2018-10-01] MEDS: PREDNISONE PO SCH (09:36)
[2018-10-01] MEDS: LEVEMIR SUBQ SCH (09:38)
[2018-10-01] MEDS ORDERED: G.I. COCKTAIL PO ONE (11:45)
--- NOTE | 2018-10-01 13:23 | PROGRESS NOTE ---
DATE: 10/01/2018 SUBJECTIVE: Mr. Julian Mccarty is a 78-year-old male. He is in no acute distress. He is resting comfortably in bed, still says he feels a little crummy but otherwise no changes. He does have some complaints of some indigestion or burning-type sensation in the middle of his lower chest but no more hypoglycemic episodes over the last 24 hours and still complains of left shoulder pain, states that he actually did not do anything to tear his rotator cuff and not sure how he did it. OBJECTIVE: Vital signs: Temperature 97.5, heart rate 66, respiratory rate 20, blood pressure 128/65, O2 saturation 100% on room air. General: Mr. Julian Mccarty is a 78-year-old male in no acute distress, resting comfortably in bed. Cardiovascular: S1, S2. Regular rate and rhythm. No rubs, gallops, or murmurs. No lower extremity edema. +2 dorsalis and radial pulses. Negative JVD and carotid bruits. Pulmonary: Clear to auscultate bilateral breath sounds, decreased in the bases. No accessory muscle use or work of breathing noted, tolerating room air. GI: Soft, nontender, nondistended. Positive bowel sounds x4. Extremities: Decreased range of motion of the left upper extremity due to pain and torn rotator cuff. Other extremities are equal. LABORATORY DATA: White blood cells 13,000, hemoglobin 10, hematocrit 31, platelet count 132. Sodium 134, potassium 4.3, BUN 35, creatinine 1.2, glucose 127, calcium 8.6. IMAGING: No new imaging. ASSESSMENT AND PLAN: 1. Bibasilar pneumonia continuing with cefepime 1 g IV q.12 hours and Zyvox 600 mg IV q.12 hours. It looks like the last chest x-ray was on the . He is saturating 100% on room air, and the x-ray on the 7th still showed small left lower lobe infiltrates. We will just repeat a chest x- ray in the morning. Antibiotics have been going since the 4th, so today is day 6. 2. Kwwdr-mi-jpeqxzx systolic congestive heart failure. Continue with p.o. Lasix. This is resolved. He has been followed by Dr. Mandel with Cardiology. 3. Left foot gout, stable, on prednisone, likely cause for continued leukocytosis. 4. Leukocytosis, being treated for pneumonia but also on prednisone for gout. He has been afebrile as well. 5. Constipation. Continue with MiraLAX. It looks like he still has not had a bowel movement since the , will add something to help with that. 6. Chronic kidney disease stage 3, stable, and much improved. Creatinine is 1.2. 7. Severe cardiomyopathy, again on Lasix, aspirin, statin, Coreg, Imdur, Aldactone. 8. Chronic obstructive pulmonary disease, no exacerbation. Continue bronchodilator therapy and now he is down to room air. 9. Diabetes mellitus type 2. He did have an episode of hypoglycemia yesterday but since then has been stable. Continue with Levemir, sliding scale insulin. 10.Gastroesophageal reflux disease. Continue with Carafate and Zantac. 11.Deep venous thrombosis prophylaxis. He is still on heparin 5000 units subcutaneously twice daily renally dosed. 12.Chronic left shoulder rotator cuff torn. He had a consult by Dr. Freedman, was seen by the nurse practitioner whose plan was for possible rotator cuff repair in the near future and would just like to see him in the office at the clinic for a 2 week followup to talk about possible surgery. He said he should be able to move his arm as tolerated and then he said he does not need a sling at this time, and the left hand roping tender is about 3/5. He does have a little more swelling in that left hand as well. Dictated by ROYER Coleman for Jaswinder Chavez MD cc: ROYER Coleman MD Concur with assessment and plan of ROYER. . [facility]
[2018-10-01] MEDS: PERICOLACE PO SCH ×2 (13:38→20:57)
[2018-10-01] MEDS: TYLENOL PO PRN (20:01)
[2018-10-01] MEDS: LIPITOR PO SCH (20:58)
[2018-10-01] MEDS: CARDIZEM CD PO SCH (20:58)
[2018-10-02] MEDS: HUMALOG SUBQ SCH ×5 (01:36→22:09)
[2018-10-02] MEDS: DUONEB (A & A) INH SCH ×7 (03:35→23:05)
[2018-10-02] MEDS: MAXIPIME 1 GM in NS 50 ML IV SCH ×2 (03:48→15:09)
[2018-10-02] MEDS: ZYVOX 600 MG/D5W 600 MG/300 ML IVPB IV SCH ×2 (04:15→17:09)
[2018-10-02] MEDS: TYLENOL PO PRN (04:39)
[2018-10-02 05:59] LABS: BASO# 0.01 X1000 (0.0-0.2); BASO% 0.1 % (0.0-0.8); EOS# 0.05 X1000 (0.0-0.7); EOS% 0.4 % (0.0-10.0); HEMATOCRIT 29.2 % (42.0-52.0); HEMOGLOBIN 9.8 g/dL (14.0-18.0); IMM GRAN# 0.29 X1000 (0.0-0.04); IMM GRAN% 2.2 % (0.0-0.5); LYMPH# 1.45 X1000 (1.2-3.4); LYMPH% 10.9 % (20.5-51.1); MCH 30.9 PG (27-31); MCHC 33.6 g/dL (33-37); MCV 92.1 FL (81-99); MONO# 2.06 X1000 (0.11-0.59); MONO% 15.5 % (1.7-9.3); MPV 10.6 FL (7.4-10.4); NEUT# 9.46 X1000 (1.4-6.5); NEUT% 70.9 % (42.2-75.2); PLT 112 X1000 (130-400); RBC 3.17 XMIL (4.7-6.1); RDW 14.9 % (11.5-14.5); WBC 13.32 X1000 (4.8-10.8)
[2018-10-02 06:18] LABS: CALCIUM 8.5 mg/dL (8.8-10.2); CREATININE 1.5 mg/dL (0.7-1.2); POTASSIUM 4.3 mmol/L (3.5-5.1)
--- NOTE | 2018-10-02 08:03 | Diag Imaging Result Doc PS360 ---
EXAM: CHEST-2 VIEWS HISTORY: f/u on pna TECHNIQUE: Chest two views COMPARISON: 09/29/2018 FINDINGS: The lungs are hyperexpanded. There are small pleural effusions. The heart remains enlarged. No pulmonary edema. There is basilar atelectasis and/or small infiltrates. IMPRESSION: Stable chest Electronically signed by Cameron Rodriguez 10/02/2018 8:00 AM
[2018-10-02] MEDS: HEPARIN SUBQ SCH ×2 (09:54→20:54)
[2018-10-02] MEDS: ASPIRIN PO SCH (09:55)
[2018-10-02] MEDS: TESSALON PO SCH ×3 (09:55→18:54)
[2018-10-02] MEDS: RANEXA PO SCH ×2 (09:55→20:56)
[2018-10-02] MEDS: PREDNISONE PO SCH (09:55)
[2018-10-02] MEDS: FERROUS SULFATE PO SCH (09:55)
[2018-10-02] MEDS: ALDACTONE PO SCH (09:55)
[2018-10-02] MEDS: COREG PO SCH ×2 (09:55→20:55)
[2018-10-02] MEDS: IMDUR PO SCH (09:55)
[2018-10-02] MEDS: PERICOLACE PO SCH ×2 (09:55→20:55)
[2018-10-02] MEDS: ZANTAC PO SCH ×2 (09:55→20:55)
[2018-10-02] MEDS: ZYRTEC PO SCH (09:55)
[2018-10-02] MEDS: VICON-C PO SCH (09:55)
[2018-10-02] MEDS: LASIX PO SCH (09:55)
[2018-10-02] MEDS: CARAFATE PO SCH ×4 (09:56→20:55)
[2018-10-02] MEDS: LEVEMIR SUBQ SCH (09:56)
--- NOTE | 2018-10-02 14:52 | PROGRESS NOTE ---
DATE: 10/02/2018 SUBJECTIVE: Mr. Julian Mccarty is a 78-year-old male. He is in no acute distress. He is sitting comfortably in bed eating, says he feels a little bit better than yesterday, still having a little bit of indigestion but better than yesterday as well. A little more discomfort in the left leg and the left shoulder. OBJECTIVE: Vital signs: Temperature 97.4, heart rate 70, respiratory rate 20, blood pressure 131/59, O2 saturation 100% on 3 L nasal cannula. General: Mr. Julian Mccarty is a 78-year-old male. He is in no acute distress, able to answer questions appropriately. Cardiovascular: S1, S2. Regular rate and rhythm. No rubs, gallops, or murmurs. Trace lower extremity edema, +2 dorsalis and radial pulses. Negative for JVD and carotid bruits. Pulmonary: Clear to auscultate bilateral breath sounds, decreased in the bases. No accessory muscle use and he is tolerating 3 L nasal cannula. GI: Soft, nontender, nondistended. Positive bowel sounds x4. Extremities: Discomfort in the left lower extremity and left upper extremity with movement. LABORATORY DATA: White blood cells 13,000, hemoglobin 9, hematocrit 29, platelet count 112. Sodium 135, potassium 4.3, BUN 35, creatinine is 1.5, glucose 154, calcium 8.5. IMAGING: Chest x-ray: Stable chest, small pleural effusion, small infiltrates. ASSESSMENT AND PLAN: 1. Bibasilar pneumonia. Continue with cefepime today and Zyvox, today is day 7. Chest x-ray this morning shows very small infiltrates, this is a stable chest x-ray. 2. Glfuj-qi-vuuvvsk systolic congestive heart failure, resolved. Continue p.o. Lasix. 3. Left foot gout, stable, on prednisone, having a little more discomfort in that area now. 4. Leukocytosis, being treated for pneumonia, is on prednisone for gout. He is afebrile. 5. Constipation. Veena-Colace was added. 6. Chronic kidney disease stage 3, stable, much improved. Creatinine although it did go up just a little bit from 1.2 to 1.5. 7. Severe cardiomyopathy on Lasix, aspirin, statin, Coreg, Imdur, Aldactone. 8. Chronic obstructive pulmonary disease. No exacerbation. Continue bronchodilator therapy and is on and off oxygen. 9. Diabetes mellitus type 2. Sliding scale insulin, Levemir, pattern blood glucoses. 10.Gastroesophageal reflux disease. Continue with Carafate and Zantac. 11.Chronic left shoulder rotator cuff torn. Will be followed as outpatient by Dr. Freedman for possible future surgery. 12.Deep venous thrombosis prophylaxis. Continue heparin subcutaneously twice daily, which is renally dosed. Dictated by ROYER Coleman for Jaswinder Chavez MD cc: ROYER Coleman MD Concur with assessment and plan of ROYER. Dr. Chavez. [facility]
[2018-10-02] MEDS: CARDIZEM CD PO SCH (20:55)
[2018-10-02] MEDS: LIPITOR PO SCH (20:55)
[2018-10-03] MEDS ORDERED: D50W SYRINGE ONE ×2 (01:32→02:36)
[2018-10-03] MEDS: HUMALOG SUBQ SCH ×7 (01:37→21:02)
[2018-10-03] MEDS: D50W SYRINGE IV ONE ×2 (01:52→02:36)
[2018-10-03] MEDS: MAXIPIME 1 GM in NS 50 ML IV SCH ×2 (02:24→13:51)
[2018-10-03] MEDS: DUONEB (A & A) INH SCH ×6 (03:05→23:05)
[2018-10-03] MEDS: ZYVOX 600 MG/D5W 600 MG/300 ML IVPB IV SCH ×2 (04:41→16:22)
[2018-10-03 06:59] LABS: BASO# 0.01 X1000 (0.0-0.2); BASO% 0.1 % (0.0-0.8); EOS# 0.04 X1000 (0.0-0.7); EOS% 0.3 % (0.0-10.0); HEMATOCRIT 29.5 % (42.0-52.0); HEMOGLOBIN 9.7 g/dL (14.0-18.0); IMM GRAN# 0.22 X1000 (0.0-0.04); IMM GRAN% 1.7 % (0.0-0.5); LYMPH# 1.65 X1000 (1.2-3.4); LYMPH% 12.7 % (20.5-51.1); MCH 30.5 PG (27-31); MCHC 32.9 g/dL (33-37); MCV 92.8 FL (81-99); MONO# 2.12 X1000 (0.11-0.59); MONO% 16.3 % (1.7-9.3); MPV 10.8 FL (7.4-10.4); NEUT# 8.94 X1000 (1.4-6.5); NEUT% 68.9 % (42.2-75.2); PLT 104 X1000 (130-400); RBC 3.18 XMIL (4.7-6.1); WBC 12.98 X1000 (4.8-10.8)
[2018-10-03 07:07] LABS: CREATININE 1.4 mg/dL (0.7-1.2); POTASSIUM 4.2 mmol/L (3.5-5.1)
[2018-10-03] MEDS: VICON-C PO SCH (08:40)
[2018-10-03] MEDS: RANEXA PO SCH ×2 (08:40→20:59)
[2018-10-03] MEDS: FERROUS SULFATE PO SCH (08:40)
[2018-10-03] MEDS: ASPIRIN PO SCH (08:41)
[2018-10-03] MEDS: LEVEMIR SUBQ SCH (08:41)
[2018-10-03] MEDS: LASIX PO SCH (08:41)
[2018-10-03] MEDS: TYLENOL PO PRN (08:41)
[2018-10-03] MEDS: IMDUR PO SCH (08:41)
[2018-10-03] MEDS: PREDNISONE PO SCH (08:41)
[2018-10-03] MEDS: ALDACTONE PO SCH (08:41)
[2018-10-03] MEDS: ZYRTEC PO SCH (08:41)
[2018-10-03] MEDS: HEPARIN SUBQ SCH ×2 (08:41→20:59)
[2018-10-03] MEDS: CARAFATE PO SCH ×4 (08:41→20:59)
[2018-10-03] MEDS: TESSALON PO SCH ×3 (08:41→16:23)
[2018-10-03] MEDS: ZANTAC PO SCH ×2 (08:41→21:00)
[2018-10-03] MEDS: COREG PO SCH ×2 (08:42→20:59)
[2018-10-03] MEDS: PERICOLACE PO SCH ×2 (08:42→21:00)
[2018-10-03] MEDS ORDERED: LACTULOSE PO ONE (14:04)
[2018-10-03] MEDS ORDERED: DULCOLAX PR ONE (14:04)
--- NOTE | 2018-10-03 17:23 | PROGRESS NOTE ---
DATE: 10/03/2018 SUBJECTIVE: Mr. Julian Mccarty is a 78-year-old male. He is sitting up comfortably in bed. He just finished a late lunch. States he still feels kind of gross, left foot still aches, still has the epigastric burning and still continues to have the left shoulder pain. He currently feels like nobody is trying to help him, and I instructed him on every intervention that we have been doing for him. He does state that he is constipated, and he has not had a bowel movement in several days, and so we will give him something to help him have a bowel movement which may hopefully help with the indigestion that he is having. I told him he needed to get up and be more active and walk around more. OBJECTIVE: Vital signs: Temperature 98.4, heart rate 70, respiratory rate 16, blood pressure 132/65, O2 saturation 100% on 2 L nasal cannula. Cardiovascular: S1, S2, regular rate and rhythm. No rubs, gallops, or murmurs. Trace of edema in the lower extremities, +2 dorsalis and radial pulses. Negative JVD or carotid bruits. Pulmonary: Clear to auscultate bilateral breath sounds, no accessory muscle use or work of breathing noted. GI: Soft, nontender, nondistended. Positive bowel sounds x4. Skin: Warm, dry, and intact. LABORATORY DATA: White blood cells 12,000, hemoglobin 9, hematocrit 29, platelet count 104. Sodium 139, potassium 4.2, BUN 34, creatinine 1.5, glucose 145, calcium 9.0. IMAGING: No new imaging. ASSESSMENT AND PLAN: 1. Bibasilar pneumonia, day 8 of cefepime and Zyvox. Will have to watch on the Zyvox, may need to stop it or change it to something else, as his platelet counts are slowly dropping. Continue p.r.n. oxygen. His O2 saturations have been 98% to 100%. Continue nebulizers. 2. Acute on chronic systolic congestive heart failure which is resolved. Continue p.o. Lasix. 3. Left foot gout. Still has some pain or discomfort in that foot, but he is stable. He is on prednisone due to the fact that he has got kidney dysfunction. 4. Leukocytosis, being treated for pneumonia, but is also on prednisone for gout, and he is afebrile. 5. Constipation. He was started yesterday on Veena-Colace 2 tabs twice a day. He is still not having a bowel movement and feels uncomfortable with that, so will give him a dose of lactulose and give him a suppository, as well. He should have no problems with having a bowel movement after that. He is also on MiraLAX. 6. Chronic kidney disease stage 3, stable. Creatinine is 1.4. It was 1.5 yesterday. 7. Severe cardiomyopathy on Lasix, aspirin, statin, Coreg, Imdur, Aldactone. 8. Chronic obstructive pulmonary disease. No exacerbation. Continue with nebulizers, on and off oxygen. 9. Diabetes mellitus type 2. Sliding scale insulin. He is on Levemir, and he is still having hypoglycemic spells in the early hours down to the 50s. His sliding scale insulin is on moderate sliding scale, but he is running in the 200s during the day and his Levemir is in the day at 25 units, and he is even having spells where he is jumping up to the 300s, so he is pretty labile with his blood glucose levels. He is on a diabetic diet. 10. Gastroesophageal reflux disease. Continue with Carafate and Zantac. 11. Chronic left shoulder rotator cuff is torn. Will follow up as outpatient with Dr. Freedman for possible future surgery. 12. DVT prophylaxis. Heparin subcutaneous twice daily renally dosed. Dictated by ROYER Coleman for Jaswinder Chavez MD cc: ROYER Coleman MD
[2018-10-03] MEDS: LIPITOR PO SCH (20:59)
[2018-10-03] MEDS: CARDIZEM CD PO SCH (20:59)
[2018-10-04] MEDS: HUMALOG SUBQ SCH ×5 (01:14→22:13)
[2018-10-04] MEDS: DUONEB (A & A) INH SCH ×6 (03:05→23:28)
[2018-10-04] MEDS: ZYVOX 600 MG/D5W 600 MG/300 ML IVPB IV SCH (03:55)
[2018-10-04] MEDS: MAXIPIME 1 GM in NS 50 ML IV SCH ×2 (03:55→16:32)
[2018-10-04 06:44] LABS: BASO# 0.01 X1000 (0.0-0.2); BASO% 0.1 % (0.0-0.8); EOS% 0.6 % (0.0-10.0); HEMATOCRIT 30.5 % (42.0-52.0); IMM GRAN# 0.33 X1000 (0.0-0.04); IMM GRAN% 2.1 % (0.0-0.5); LYMPH# 1.85 X1000 (1.2-3.4); LYMPH% 11.8 % (20.5-51.1); MCH 30.8 PG (27-31); MCHC 32.8 g/dL (33-37); MCV 93.8 FL (81-99); MONO# 3.09 X1000 (0.11-0.59); MONO% 19.6 % (1.7-9.3); MPV 10.5 FL (7.4-10.4); NEUT# 10.36 X1000 (1.4-6.5); NEUT% 65.8 % (42.2-75.2); PLT 96 X1000 (130-400); RBC 3.25 XMIL (4.7-6.1); RDW 15.1 % (11.5-14.5); WBC 15.74 X1000 (4.8-10.8)
[2018-10-04 06:48] LABS: CALCIUM 8.9 mg/dL (8.8-10.2); CREATININE 1.4 mg/dL (0.7-1.2); POTASSIUM 3.9 mmol/L (3.5-5.1)
[2018-10-04] MEDS: LEVEMIR SUBQ SCH (09:12)
[2018-10-04] MEDS: PREDNISONE PO SCH (09:14)
[2018-10-04] MEDS: HEPARIN SUBQ SCH ×2 (09:22→22:14)
[2018-10-04] MEDS: RANEXA PO SCH ×2 (09:23→22:15)
[2018-10-04] MEDS: VICON-C PO SCH (09:23)
[2018-10-04] MEDS: ALDACTONE PO SCH (09:23)
[2018-10-04] MEDS: ASPIRIN PO SCH (09:23)
[2018-10-04] MEDS: TESSALON PO SCH ×3 (09:23→16:35)
[2018-10-04] MEDS: COREG PO SCH ×2 (09:23→22:16)
[2018-10-04] MEDS: ZYRTEC PO SCH (09:23)
[2018-10-04] MEDS: IMDUR PO SCH (09:23)
[2018-10-04] MEDS: CARAFATE PO SCH ×4 (09:23→22:15)
[2018-10-04] MEDS: PERICOLACE PO SCH ×2 (09:23→22:15)
[2018-10-04] MEDS: FERROUS SULFATE PO SCH (09:23)
[2018-10-04] MEDS: LASIX PO SCH (09:24)
[2018-10-04] MEDS: ZANTAC PO SCH ×2 (09:24→22:16)
--- NOTE | 2018-10-04 16:09 | PROGRESS NOTE ---
DATE: 10/04/2018 SUBJECTIVE: The patient is awake. OBJECTIVE: Vital signs: Vital signs are as follows: Temperature 98 degrees, pulse 61, respirations 18, blood pressure 114/55, oxygen saturation 97%. HEENT: Atraumatic, normocephalic. Cardiovascular system: S1, S2. Respiratory system: Has evidence of good air entry bilaterally. Abdomen: Soft, nontender. No masses. Extremities: No evidence of significant edema in the lower extremities. Central nervous system: No obvious focal deficit noted. LABS AND X-RAYS: WBC is 15.74, hematocrit is 30.5 with a platelet count of 96. Sodium is 136, potassium 3.9, chloride 99, bicarbonate 31. BUN is 32, creatinine 1.4. X-ray of the chest done 09/01 shows the lungs are hyperexpanded with small pleural effusions. ASSESSMENT AND PLAN: 1. Bilateral pneumonia. The patient has been on cefepime, as well as Zyvox. Note a continued progressive drop in platelet count and, as such, Zyvox has been discontinued. 2. Congestive heart failure. Stable. Monitor intakes and outputs, as well as daily weights. Use diuretics as needed. 3. Gout, left foot. Continue steroids. 4. Chronic kidney disease. Follow up on renal function. Avoid nephrotoxic agent. The patient's medication dose will need to be adjusted for renal function. 5. Chronic obstructive pulmonary disease. Use nebulized bronchodilators as needed. 6. Diabetes mellitus. Monitor blood sugar levels. Maintain patient on sliding scale insulin. 7. Gastroesophageal reflux disease. Continue H 2 isra. 8. Deep vein thrombosis prophylaxis. Sequential compression devices. We will discontinue heparin in light of thrombocytopenia. DISPOSITION: I think the patient can be ready to go home in the next 1 to 2 days. I would like to just trend platelet counts to ensure he is not getting worse. cc: Jaswinder Chavez MD
[2018-10-04] MEDS: TYLENOL PO PRN ×2 (16:32→23:13)
[2018-10-04] MEDS: LIPITOR PO SCH (22:15)
[2018-10-04] MEDS: CARDIZEM CD PO SCH (22:16)
[2018-10-05] MEDS: DUONEB (A & A) INH SCH ×6 (03:18→23:10)
[2018-10-05] MEDS: MAXIPIME 1 GM in NS 50 ML IV SCH ×2 (03:47→15:17)
[2018-10-05] MEDS: HUMALOG SUBQ SCH ×7 (04:48→23:36)
[2018-10-05 06:23] LABS: EOS# 0.11 X1000 (0.0-0.7); HEMOGLOBIN 9.2 g/dL (14.0-18.0); IMM GRAN# 0.17 X1000 (0.0-0.04); IMM GRAN% 1.5 % (0.0-0.5); LYMPH# 2.35 X1000 (1.2-3.4); LYMPH% 20.4 % (20.5-51.1); MCH 29.9 PG (27-31); MCHC 31.7 g/dL (33-37); MCV 94.2 FL (81-99); MONO% 23.5 % (1.7-9.3); MPV 10.3 FL (7.4-10.4); NEUT# 6.17 X1000 (1.4-6.5); NEUT% 53.6 % (42.2-75.2); PLT 88 X1000 (130-400); RBC 3.08 XMIL (4.7-6.1); RDW 15.4 % (11.5-14.5)
[2018-10-05 06:53] LABS: ALB/GLOB RATIO 1.4; ALBUMIN 2.7 g/dL (3.5-5.0); CALCIUM 8.3 mg/dL (8.8-10.2); CREATININE 1.6 mg/dL (0.7-1.2); POTASSIUM 4.7 mmol/L (3.5-5.1); TOTAL BILIRUBIN 0.26 mg/dL (0.20-1.00); TOTAL PROTEIN 4.7 g/dL (6.3-8.3)
[2018-10-05 07:40] LABS: BANDS 6 % (0-1); EOS 2 % (1-10); LYMPHS 18 % (21-51); SEGS 74 % (42-75)
--- NOTE | 2018-10-05 07:48 | Diag Imaging Result Doc PS360 ---
EXAM: CHEST-1 VIEW 10/05/2018 HISTORY: SOB TECHNIQUE: AP portable at 0716 COMMENT: There is cardiomegaly. There is hazy pulmonary edema particularly in the right lower lobe. Considering differences in technique and inspiration this has not changed significantly since 10/02/2018. IMPRESSION: Mild pulmonary edema and cardiomegaly. Electronically signed by Darwin Guadalupe 10/05/2018 7:46 AM
[2018-10-05] MEDS: ZANTAC PO SCH ×2 (09:12→21:01)
[2018-10-05] MEDS: PERICOLACE PO SCH ×2 (09:12→21:00)
[2018-10-05] MEDS: CARAFATE PO SCH ×4 (09:12→21:01)
[2018-10-05] MEDS: COREG PO SCH ×2 (09:12→21:00)
[2018-10-05] MEDS: FERROUS SULFATE PO SCH (09:12)
[2018-10-05] MEDS: VICON-C PO SCH (09:12)
[2018-10-05] MEDS: ALDACTONE PO SCH (09:12)
[2018-10-05] MEDS: PREDNISONE PO SCH (09:12)
[2018-10-05] MEDS: ZYRTEC PO SCH (09:12)
[2018-10-05] MEDS: TESSALON PO SCH ×3 (09:12→17:49)
[2018-10-05] MEDS: HEPARIN SUBQ SCH ×2 (09:13→21:01)
[2018-10-05] MEDS: ASPIRIN PO SCH (09:13)
[2018-10-05] MEDS: IMDUR PO SCH (09:13)
[2018-10-05] MEDS: RANEXA PO SCH ×2 (09:13→21:00)
[2018-10-05] MEDS: LASIX PO SCH (09:13)
[2018-10-05] MEDS: LEVEMIR SUBQ SCH (09:14)
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
[2018-10-05] MEDS: CARDIZEM CD PO SCH (21:00)
[2018-10-05] MEDS: LIPITOR PO SCH (21:01)
[2018-10-06] MEDS: TYLENOL PO PRN ×4 (00:10→23:50)
[2018-10-06] MEDS: MAXIPIME 1 GM in NS 50 ML IV SCH ×2 (02:52→14:34)
[2018-10-06] MEDS: HUMALOG SUBQ SCH ×6 (02:52→22:09)
[2018-10-06] MEDS: DUONEB (A & A) INH SCH ×6 (03:55→23:16)
[2018-10-06 07:31] LABS: CALCIUM 9.6 mg/dL (8.8-10.2); CREATININE 1.3 mg/dL (0.7-1.2); POTASSIUM 4.2 mmol/L (3.5-5.1)
[2018-10-06] MEDS ORDERED: INSULIN PEN NEEDLES ONE (08:27)
[2018-10-06] MEDS: TESSALON PO SCH ×3 (09:06→17:35)
[2018-10-06] MEDS: PREDNISONE PO SCH (09:06)
[2018-10-06] MEDS: LEVEMIR SUBQ SCH (09:06)
[2018-10-06] MEDS: CARAFATE PO SCH ×4 (09:06→22:08)
[2018-10-06] MEDS: ZANTAC PO SCH ×2 (09:06→22:07)
[2018-10-06] MEDS: FERROUS SULFATE PO SCH (09:06)
[2018-10-06] MEDS: HEPARIN SUBQ SCH ×2 (09:06→22:08)
[2018-10-06] MEDS: COREG PO SCH ×2 (09:06→22:08)
[2018-10-06] MEDS: ASPIRIN PO SCH (09:06)
[2018-10-06] MEDS: RANEXA PO SCH ×2 (09:06→22:07)
[2018-10-06] MEDS: IMDUR PO SCH (09:06)
[2018-10-06] MEDS: LASIX PO SCH (09:06)
[2018-10-06] MEDS: VICON-C PO SCH (09:06)
[2018-10-06] MEDS: PERICOLACE PO SCH ×2 (09:07→22:08)
[2018-10-06] MEDS: ZYRTEC PO SCH (09:07)
[2018-10-06] MEDS: ALDACTONE PO SCH (09:07)
--- NOTE | 2018-10-06 13:48 | PROGRESS NOTE ---
DATE: 10/06/2018 SUBJECTIVE: Patient is awake, not in any obvious distress. OBJECTIVE: Vital Signs: Temperature 98.3 degrees, pulse 74, respiratory rate 16, blood pressure 142/71, oxygen is 95%. HEENT: Atraumatic, normocephalic. Cardiovascular: S1, S2. Respiratory: Has evidence of good air entry bilaterally. Abdomen: Soft, nontender. No masses felt. Extremities: 2+ edema in the lower extremities. Central nervous system: No obvious focal deficit noted. LABORATORIES: Sodium is 138, potassium 4.2, chloride is 99, bicarb is 29, BUN is 35, creatinine 1.3. X-ray chest shows mild pulmonary edema as well as cardiomegaly. ASSESSMENT AND PLAN: 1. Bilateral pneumonia. Continue antibiotics. Zyvox discontinued in light of thrombocytopenia. 2. Congestive heart failure, stable. Monitor intakes and outputs, as well as daily weights. Diuretics as needed. 3. Gout left foot. Continue steroids. 4. Chronic kidney disease. Follow up on renal function. Avoid nephrotoxic agent. The patient will need medication [*]suggested for renal function. 5. Chronic obstructive pulmonary disease. Use nebulized bronchodilators as needed. 6. Diabetes mellitus. Continue blood sugar monitoring as well as sliding scale insulin. 7. Gastroesophageal reflux disease. Continue H2 isra. 8. Deep vein thrombosis prophylaxis. Sequential compression devices. 9. Disposition. Still concerned about the patient's platelet count, which does not seem to be improving at this time. I believe his thrombocytopenia is drug induced secondary to a combination of Zyvox as well as heparin. Both medications have been discontinued. We will follow up on platelet count and hopefully as soon as he begins to improve, we should be able to get him discharged. cc: Jaswinder Chavez MD
[2018-10-06] MEDS: LIPITOR PO SCH (22:08)
[2018-10-06] MEDS: CARDIZEM CD PO SCH (22:08)
[2018-10-07] MEDS: HUMALOG SUBQ SCH ×6 (00:22→23:05)
[2018-10-07] MEDS: MAXIPIME 1 GM in NS 50 ML IV SCH ×2 (03:15→17:47)
[2018-10-07] MEDS: DUONEB (A & A) INH SCH ×6 (03:40→23:05)
[2018-10-07 06:27] LABS: EOS# 0.03 X1000 (0.0-0.7); EOS% 0.3 % (0.0-10.0); HEMATOCRIT 27.3 % (42.0-52.0); HEMOGLOBIN 8.9 g/dL (14.0-18.0); IMM GRAN# 0.16 X1000 (0.0-0.04); IMM GRAN% 1.5 % (0.0-0.5); LYMPH% 14.2 % (20.5-51.1); MCH 30.6 PG (27-31); MCHC 32.6 g/dL (33-37); MCV 93.8 FL (81-99); MONO# 1.63 X1000 (0.11-0.59); MONO% 15.4 % (1.7-9.3); MPV 10.5 FL (7.4-10.4); NEUT# 7.26 X1000 (1.4-6.5); NEUT% 68.6 % (42.2-75.2); PLT 71 X1000 (130-400); RBC 2.91 XMIL (4.7-6.1); RDW 15.1 % (11.5-14.5); WBC 10.58 X1000 (4.8-10.8)
[2018-10-07 07:09] LABS: ALB/GLOB RATIO 1.2; ALBUMIN 2.7 g/dL (3.5-5.0); CALCIUM 9.3 mg/dL (8.8-10.2); CREATININE 1.5 mg/dL (0.7-1.2); POTASSIUM 4.8 mmol/L (3.5-5.1); TOTAL BILIRUBIN 0.19 mg/dL (0.20-1.00)
[2018-10-07] MEDS: VICON-C PO SCH (08:23)
[2018-10-07] MEDS: ASPIRIN PO SCH (08:23)
[2018-10-07] MEDS: ALDACTONE PO SCH (08:23)
[2018-10-07] MEDS: COREG PO SCH ×2 (08:23→23:05)
[2018-10-07] MEDS: TESSALON PO SCH ×3 (08:23→17:47)
[2018-10-07] MEDS: ZANTAC PO SCH ×2 (08:23→23:05)
[2018-10-07] MEDS: IMDUR PO SCH (08:23)
[2018-10-07] MEDS: CARAFATE PO SCH ×4 (08:23→23:05)
[2018-10-07] MEDS: FERROUS SULFATE PO SCH (08:23)
[2018-10-07] MEDS: HEPARIN SUBQ SCH ×2 (08:24→23:04)
[2018-10-07] MEDS: PERICOLACE PO SCH ×2 (08:24→23:05)
[2018-10-07] MEDS: PREDNISONE PO SCH (08:24)
[2018-10-07] MEDS: ZYRTEC PO SCH (08:24)
[2018-10-07] MEDS: RANEXA PO SCH ×2 (08:24→23:05)
[2018-10-07] MEDS: LASIX PO SCH (08:24)
[2018-10-07] MEDS: LEVEMIR SUBQ SCH (08:25)
--- NOTE | 2018-10-07 10:46 | Diag Imaging Result Doc PS360 ---
EXAM: CHEST-1 VIEW HISTORY: chest pain TECHNIQUE: Chest single view COMPARISON: 10/05/2018 FINDINGS: The lungs are well expanded. The heart is mildly prominent. The vessels are borderline mildly distended. There are no infiltrates. No effusion identified. Prominent atherosclerosis. IMPRESSION: Mild pulmonary edema Electronically signed by Cameron Rodriguez 10/07/2018 10:44 AM
--- NOTE | 2018-10-07 11:07 | EKG Report ---
Test Performed on : 10/07/2018 10:14:04 AM Test Reason : CHEST PAIN Blood Pressure : / mmHG Vent. Rate : 068 BPM Atrial Rate : 068 BPM P-R Int : 200 ms QRS Dur : 124 ms QT Int : 428 ms P-R-T Axes : 047 -22 -82 degrees QTc Int : 455 ms Normal sinus rhythm. Left ventricular hypertrophy with QRS widening and repolarization abnormality Abnormal ECG When compared with ECG of 30-SEP-2018 10:18, Inverted T waves have replaced nonspecific T wave abnormality in Inferior leads Confirmed by Magalis CIFUENTES, Elia ([id number]) on 10/08/2018 8:41:48 AM
[2018-10-07] MEDS ORDERED: ULTRAM PO ONE (12:51)
[2018-10-07] MEDS ORDERED: LASIX IV ONE (15:20)
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
[2018-10-07] MEDS: TYLENOL PO PRN (22:07)
[2018-10-07] MEDS: CARDIZEM CD PO SCH (23:05)
[2018-10-07] MEDS: LIPITOR PO SCH (23:05)
[2018-10-08] MEDS: HUMALOG SUBQ SCH ×4 (01:16→12:21)
[2018-10-08] MEDS: DUONEB (A & A) INH SCH ×3 (03:10→12:01)
[2018-10-08] MEDS: MAXIPIME 1 GM in NS 50 ML IV SCH (04:15)
[2018-10-08] MEDS: LASIX PO SCH (08:33)
[2018-10-08] MEDS: ZYRTEC PO SCH (08:33)
[2018-10-08] MEDS: COREG PO SCH (08:34)
[2018-10-08] MEDS: FERROUS SULFATE PO SCH (08:34)
[2018-10-08] MEDS: CARAFATE PO SCH ×2 (08:34→13:51)
[2018-10-08] MEDS: ALDACTONE PO SCH (08:34)
[2018-10-08] MEDS: PREDNISONE PO SCH (08:34)
[2018-10-08] MEDS: PERICOLACE PO SCH (08:35)
[2018-10-08] MEDS: ASPIRIN PO SCH (08:35)
[2018-10-08] MEDS: IMDUR PO SCH (08:35)
[2018-10-08] MEDS: VICON-C PO SCH (08:35)
[2018-10-08] MEDS: RANEXA PO SCH (08:36)
[2018-10-08] MEDS: TESSALON PO SCH ×2 (08:36→13:51)
[2018-10-08] MEDS: ZANTAC PO SCH (08:36)
[2018-10-08] MEDS: HEPARIN SUBQ SCH (08:39)
[2018-10-08] MEDS: LEVEMIR SUBQ SCH (08:40)
[2018-10-08 11:41] VITALS: BP 131/69
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
--- NOTE | 2018-10-08 14:53 | Extremity Venous Study ---
PROCEDURE NAME: Venous U/S Bilateral Legs - 10/07/2018 REQUESTING PHYSICIAN: . SYSTEM SOFTWARE DEVELOPER: Celio. INDICATIONS: Swelling and pain. EQUIPMENT: [employer] Vivid E9 ultrasound system with a 9 L-D transducer. FINDINGS: Images of the bilateral lower extremity venous systems were obtained in both sagittal and transverse planes. Doppler was used to evaluate veins for spontaneity, phasicity, respiratory excursion, and digital augmentation. RESULTS: Normal venous compression, normal venous flow. No obvious superficial or deep venous thrombosis noted. cc: MD Jaswinder Roblero MD [facility] HOSPITALJaden
--- NOTE | 2018-10-10 01:47 | PROGRESS NOTE ---
DATE: 10/07/2018 SUBJECTIVE: The patient is resting comfortably in bed. OBJECTIVE: Vital signs: Temperature 97.5 degrees, pulse 89, respiratory rate 16, blood pressure 151/79, oxygen saturation is 95%. HEENT: Atraumatic and normocephalic. Cardiovascular: S1 and S2. Respiratory System: Good air entry bilaterally. Abdomen: Soft and nontender. No masses felt. Extremities: Has 2+ edema in the lower extremities. Central Nervous System: No obvious focal deficits noted. LABORATORY DATA: WBC 10.58, hematocrit 27.3, with a platelet count of 71,000. Sodium 135, potassium 4.8, chloride is 97, bicarbonate 31, BUN is 32, creatinine is 1.5. D- dimer was 1.28. ASSESSMENT AND PLAN: 1. Atypical chest pain. Check electrocardiogram, serial cardiac enzymes, chest x-ray, and also a ventilationperfusion scan. 2. Bilateral pneumonia. Continue antibiotics. Zyvox discontinued in light of thrombocytopenia. 3. Congestive heart failure. Stable. Monitor intakes and outputs, as well as daily weights. Diuretics as needed. 4. Gout left foot. Continue steroids. 5. Chronic kidney disease. Follow up on renal function. Avoid nephrotoxic agent. The patient's medication dose will need to be adjusted for renal function if needed. 6. Chronic obstructive pulmonary disease. Nebulized bronchodilators as needed. 7. Diabetes mellitus. Blood sugar monitoring as well as sliding scale insulin. 8. Gastroesophageal reflux disease. H2 isra. 9. Thrombocytopenia, most likely medication induced. Heparin as well as Zyvox discontinued. 10. Deep vein thrombosis prophylaxis. Sequential compression devices. 11. Disposition. Plan was for the patient to be discharge on 10/07/2018, apparently this did not occur because of need for workup for chest pain. cc: Jaswinder Chavez MD MTDD
== END 2018-10-08 14:10 | disposition home health service (06) | DRG 190 ==
LOC: SUPCPDRO → ED 10:54 → 4N 14:24 → SUATTDRO 14:24
PROVIDERS: ATTEND Internal Medicine
CPT/HCPCS: 71010; 71020; 71045; 71046; 71250; 73030; 73221; 78582; 80048; 80053; 82550; 82805; 82948; 83036; 83735; 83880; 84145; 84484; 84550; 85025; 85379; 87040; 93005; 93010; 93306; 93970; 94640; 94667; 94668; 94760; 94761; 94799; 96374; 97116; 97162; 97530; 99285; A9270; A9539; A9540; J0456; J0692; J0696; J1644; J1815; J1940; J2020; J2270; J2405; J2920; J2930; J7030; J7506; J7512; XXXXX